=== PATIENT | female | born 1950 | race American Indian/Alaskan Native ===

== ENCOUNTER 2018-11-06 16:47 | Inpatient (IN) | payer MEDICARE, MEDICAID, OTHER | END 2018-11-10 14:45 | LOC: ER 16:47 → ED HOLD 19:51 → PCU 3S 20:44 | DX: N17.9 Acute kidney failure, unspecified (principal); I13.0 Hypertensive heart and chronic kidney disease with heart failure and stage 1 through stage 4 chronic kidney disease, or unspecified chronic kidney disease; E11.22 Type 2 diabetes mellitus with diabetic chronic kidney disease; N18.4 Chronic kidney disease, stage 4 (severe); E11.21 Type 2 diabetes mellitus with diabetic nephropathy; E66.9 Obesity, unspecified; Z68.38 Body mass index [BMI] 38.0-38.9, adult ==

== ENCOUNTER 2019-01-13 19:12 | Inpatient (IN) | payer MEDICARE, MEDICAID, OTHER ==
[~2019-01-13] VITALS: Ht 152.4 cm; Wt 89.9 kg
[~2019-01-13 19:12] MED LIST: AMLO2.5T2 PO; ASPI-1264 PO; ATOR20TA PO; CEFT1VIA14 IV; CLON-529 PO; DOCU100C41 PO; FENT1PAT10 TP; FERR325T28 PO; FOLI0.4T2 PO; FURO-150 PO; INSU100C10 SQ; LANTUS SQ; LISI40TA4 PO; METF500T PO; METO1TAB25 PO; OMEP40CA37 PO; POTA10TA10 PO; SYN0.088T PO
[2019-01-13] MEDS ORDERED: normal saline 1000ML IV soln IVB ONE (19:20)
[2019-01-13] MEDS ORDERED: CefTRIAXone 2gm/D5W 50ml 50 ML IV ONE (19:20)
--- NOTE | 2019-01-13 19:40 | NUR ---
Pt back from CT
[2019-01-13 19:49] LABS: BASOPHILS # (AUTO) 0.1 X10'3 (0-0.2); BASOPHILS % (AUTO) 0.3 % (0-1); EOSINOPHILS % (AUTO) 0 % (0-6); LYMPHOCYTES # (AUTO) 1.4 X10'3 (1.1-4.8); LYMPHOCYTES % (AUTO) 6.8 % (21-51); MEAN CORPUSCULAR HEMOGLOBIN 31.1 PG (27.0-31.0); MEAN CORPUSCULAR HGB CONC 30.3 g/dL (33.0-36.5); MEAN CORPUSCULAR VOLUME 102.6 FL (78-98); MEAN PLATELET VOLUME 8.5 FL (7.4-10.4); MONOCYTES # (AUTO) 0.8 X10'3 (0-0.9); MONOCYTES % (AUTO) 3.8 % (2-12); NEUTROPHILS % (AUTO) 89.1 % (42-75); PLATELET COUNT 559 X10'3 (140-440); RED BLOOD COUNT 1.07 X10'6 (4.20-5.60); RED CELL DISTRIBUTION WIDTH 15.1 % (11.5-14.5); WHITE BLOOD COUNT 21.3 X10'3 (4.5-11.0)
[2019-01-13 20:03] LABS: HEMOGLOBIN 3.3 g/dl (12.0-16.0)
[2019-01-13 20:04] LABS: ALANINE AMINOTRANSFERASE 14 U/L (12-78); ALBUMIN 1.3 G/DL (3.4-5.0); ALBUMIN/GLOBULIN RATIO 0.4 (1.1-1.5); ALKALINE PHOSPHATASE 69 IU/L (46-116); ANION GAP 15 (8-16); ASPARTATE AMINO TRANSFERASE 19 U/L (10-37); BILIRUBIN,TOTAL 0.3 MG/DL (0.1-1.0); BLOOD UREA NITROGEN 80 MG/DL (7-18); BUN/CREATININE RATIO 24.8 (6.6-38.0); CALCIUM 7.3 MG/DL (8.5-10.1); CHLORIDE 108 MMOL/L (99-107); CREATININE 3.23 MG/DL (0.40-0.90); GLUCOSE 200 MG/DL (70-104); MAGNESIUM 1.6 MG/DL (1.5-2.4); SODIUM 136 MMOL/L (135-145); TOTAL PROTEIN 4.7 G/DL (6.4-8.2); eGFR 14 ML/MIN
[2019-01-13 20:06] LABS: TOTAL CARBON DIOXIDE 13.4 MMOL/L (24-32)
[2019-01-13 20:07] LABS: INR 1.1 INR; PARTIAL THROMBOPLASTIN TIME 27 SECONDS (22-32)
--- NOTE | 2019-01-13 20:27 | NUR ---
pt had small brown loose bowel, +hemocult, pt able to roll side to side without assist, family at bedside, pt has wound to rt buttock, picture taken, no skin breakdown to back/coccyx, Dr Ramachandran has talked with family,
[2019-01-13 20:30] LABS: CLARITY,URINE SLIGHTLY CLOUDY (Clear); GLUCOSE, URINE 100 mg/dl (Neg); KETONES,URINE NEGATIVE (Neg); LEUKOCYTE ESTERASE ,URINE MODERATE (Neg); NITRITES, URINE POSITIVE (Neg); OCCULT BLOOD,URINE TRACE-INTACT (Neg); PROTEIN,URINE 100 mg/dl (Neg)
[2019-01-13 20:33] LABS: UA COLLECTION TYPE STRAIGHT CATH
[2019-01-13 20:34] LABS: COLOR,URINE Dark Yellow (Yellow)
[2019-01-13 20:47] LABS: WBC,URINE 30-50 /HPF (0-4)
[2019-01-13 20:49] LABS: AMORPHOUS URATES 2+; BACTERIA,URINE FEW /HPF (Neg); MUCUS STRANDS NONE SEEN /LPF (Neg); RBC,URINE NONE SEEN /HPF (0-2); SQUAMOUS EPITHELIAL CELL,UR FEW /LPF (FEW); WBC CLUMPS,URINE MODERATE /HPF (NEGATIVE)
[2019-01-13 20:50] LABS: YEAST MODERATE /HPF (NEGATIVE)
--- NOTE | 2019-01-13 20:55 | NUR ---
PA with ICU at bedside to evaluate pt
[2019-01-13] MEDS: normal saline 1000ml 1,000 ML IV SCH (21:01)
[2019-01-13] MEDS ORDERED: potassium Cl 40MEQ/NS 500ml 500 ML IV PRN ×2 (21:05)
[2019-01-13] MEDS ORDERED: ondansetron/PF 4mg/2ml inj IV PRN (21:05)
[2019-01-13] MEDS ORDERED: potassium Cl 20 mEq SR tablet PO PRN ×2 (21:05)
[2019-01-13] MEDS ORDERED: ipratropium/albuterol 3ml nebule NEB PRN (21:05)
[2019-01-13] MEDS: K, MAG and/or Phos replacement - Verify level? MC SCH (21:05)
[2019-01-13] MEDS ORDERED: acetaminophen 325mg tablet PO PRN ×2 (21:05)
[2019-01-13 21:26] LABS: OCCULT BLOOD STOOL POSITIVE (Neg)
--- NOTE | 2019-01-13 21:27 | NUR ---
pt placed on bedpan for BM - she is given call light and instructed to press the button when she is finished.
[2019-01-13] MEDS ORDERED: glucagon, human recombinant 1mg kit SUBCUT PRN (21:30)
[2019-01-13] MEDS ORDERED: dextrose 50%-water 50ml dispensing syringe IV PRN (21:30)
[2019-01-13] MEDS ORDERED: dextrose ORAL solution 15 GM/59 ML bottle PO PRN (21:30)
[2019-01-13] MEDS ORDERED: MESSAGE TO PHARMACY PO ONE (21:30)
[2019-01-13 21:43] VITALS: BP 96/52
[2019-01-13] MEDS ORDERED: pantoprazole 40 MG vial IV ONE (21:50)
--- NOTE | 2019-01-13 21:53 | NUR ---
BLOOD/BRACELETS SCANNED - WENT TO DO CHECKLIST FOR NS/BLOOD TUBING, CMV/IRRIDATED, ETC, CHECK SCREEN RETURNED ME TO MAIN TRANSFUSION SCREEN. UNABLE TO CHECK BOXES -
[2019-01-13 22:00] VITALS: BP 99/35
--- NOTE | 2019-01-13 22:01 | NUR ---
pt is receiving 1st unit PRBC, shirley well, family at bedside
--- NOTE | 2019-01-13 22:05 | NUR ---
attempted report, room is not ready and nurse will call back for report
[2019-01-13] MEDS ORDERED: pantoprazole 40 MG vial IV SCH (22:30)
[2019-01-13 22:33] LABS: PLATELET ESTIMATE INCREASED; TOTAL CELLS COUNTED 100
[2019-01-13 22:34] LABS: POLYCHROMASIA 1+
[2019-01-13 22:35] LABS: HYPOCHROMASIA 1+
--- NOTE | 2019-01-13 22:35 | NUR ---
ATTEMPTED REPORT, UNIT NURSE NOT AVAILABLE DUE TO CRISIS IN ICU
[2019-01-13 22:36] LABS: HYPERSEGMENTED NEUTROPHILS FEW
[2019-01-13] MEDS ORDERED: calcium chloride 100 MG/1 ML inj IV ONE (22:45)
[2019-01-13 22:58] VITALS: BP 103/46
[2019-01-13 22:59] LABS: HEMOGLOBIN A1C 8.4 % (4.5-6.2)
[2019-01-13 23:06] VITALS: BP 110/52
--- NOTE | 2019-01-13 23:14 | NUR ---
2nd unit of blood transfusing, family at BS. Pt feeling better, a little more 'spunk' after the first unit
--- NOTE | 2019-01-13 23:15 | NUR ---
Patient in room . I have received report from Lamar and had the opportunity to ask questions and assume patient care.
--- NOTE | 2019-01-13 23:18 | NUR ---
report to Jesús MUNOZ
[2019-01-13 23:21] VITALS: BP 134/52
--- NOTE | 2019-01-13 23:23 | NUR ---
pt is receiving 2nd unit PRBC, shirley well, no s/s of reaction to receiving blood products
[2019-01-13 23:45] VITALS: BP 115/45
[2019-01-14] VITALS (24 sets, daily range): BP systolic 99–156; BP diastolic 35–69
[2019-01-14 03:32] LABS: BASOPHILS # (AUTO) 0.1 X10'3 (0-0.2); BASOPHILS % (AUTO) 0.3 % (0-1); EOSINOPHILS % (AUTO) 0.2 % (0-6); HEMATOCRIT 30.8 % (35.0-45.0); HEMOGLOBIN 9.8 g/dl (12.0-16.0); LYMPHOCYTES # (AUTO) 1.8 X10'3 (1.1-4.8); LYMPHOCYTES % (AUTO) 9.4 % (21-51); MEAN CORPUSCULAR HEMOGLOBIN 30.2 PG (27.0-31.0); MEAN CORPUSCULAR HGB CONC 31.9 g/dL (33.0-36.5); MEAN CORPUSCULAR VOLUME 94.9 FL (78-98); MEAN PLATELET VOLUME 8.6 FL (7.4-10.4); MONOCYTES % (AUTO) 5.2 % (2-12); NEUTROPHILS # (AUTO) 16.7 X10'3 (1.8-7.7); NEUTROPHILS % (AUTO) 84.9 % (42-75); PLATELET COUNT 395 X10'3 (140-440); RED BLOOD COUNT 3.24 X10'6 (4.20-5.60); RED CELL DISTRIBUTION WIDTH 18.3 % (11.5-14.5); WHITE BLOOD COUNT 19.7 X10'3 (4.5-11.0)
[2019-01-14 03:37] LABS: ALANINE AMINOTRANSFERASE 17 U/L (12-78); ALBUMIN 1.3 G/DL (3.4-5.0); ALBUMIN/GLOBULIN RATIO 0.4 (1.1-1.5); ALKALINE PHOSPHATASE 63 IU/L (46-116); ANION GAP 16 (8-16); ASPARTATE AMINO TRANSFERASE 18 U/L (10-37); BILIRUBIN,TOTAL 0.3 MG/DL (0.1-1.0); BLOOD UREA NITROGEN 76 MG/DL (7-18); BUN/CREATININE RATIO 24.8 (6.6-38.0); CHLORIDE 110 MMOL/L (99-107); CREATININE 3.06 MG/DL (0.40-0.90); GLUCOSE 141 MG/DL (70-104); MAGNESIUM 1.6 MG/DL (1.5-2.4); PHOSPHORUS 6.8 MG/DL (2.3-4.5); POTASSIUM 4.9 MMOL/L (3.5-5.1); SODIUM 138 MMOL/L (135-145); TOTAL PROTEIN 4.6 G/DL (6.4-8.2); eGFR 15 ML/MIN
[2019-01-14 03:42] LABS: TOTAL CARBON DIOXIDE 12.2 MMOL/L (24-32)
[2019-01-14] MEDS ORDERED: aspirin 325mg tablet PO SCH (08:00)
[2019-01-14] MEDS ORDERED: levoTHYROXINE 88mcg tablet PO SCH (08:00)
[2019-01-14] MEDS: K, MAG and/or Phos replacement - Verify level? MC SCH (08:00)
[2019-01-14] MEDS ORDERED: folic acid 0.4mg tablet PO SCH (08:00)
[2019-01-14] MEDS: pantoprazole 40 MG vial IV SCH (08:54)
[2019-01-14] MEDS: ferrous sulfate 325mg tablet PO SCH (08:55)
[2019-01-14] MEDS: docusate sod 100mg capsule PO SCH (08:55)
--- NOTE | 2019-01-14 10:59 | NUR ---
Attempting to contact SHAUNA for Dr Snowden. Trying to get holistic health practitioner number from housekeeper head but she is not answering. Paged SHAUNA on intranet and notified charge of issues contacting SHAUNA
[2019-01-14] MEDS: normal saline 1000ml 1,000 ML IV SCH ×2 (11:15→16:04)
--- NOTE | 2019-01-14 11:28 | NUR ---
Called type disk quality control supervisor GI Doc and spoke with answering service. They will call back; Dr lopez number given
--- NOTE | 2019-01-14 12:54 | NUR ---
DM Consult: A1C 8.4. Pt admit w/ possible NSTEMI, dehydration and shock w/ subsequent renal failure per MD note. CT abdomen revealed possible superficial hematoma; LBM 01/13 stool occult positive though brown per MD note. PO meals pending at this time. RD unable to wake pt during visit; written DM ed handout w/ RD contact information left at bedside. Will continue to monitor. Rec: 1. continue carb controlled diet 2. monitor for ONS needs pending PO this admit 3. wt per rx Addendum: 01/14/19 at [address] Amended: Links added.
[2019-01-14 13:44] LABS: ABSOLUTE RETICS # 123900 /CUMM (23000-93000); HEMATOCRIT 28.9 % (35.0-45.0); HEMOGLOBIN 9.2 g/dl (12.0-16.0); MEAN CORPUSCULAR HEMOGLOBIN 30.2 PG (27.0-31.0); MEAN CORPUSCULAR HGB CONC 31.9 g/dL (33.0-36.5); MEAN CORPUSCULAR VOLUME 94.5 FL (78-98); MEAN PLATELET VOLUME 8.9 FL (7.4-10.4); PLATELET COUNT 390 X10'3 (140-440); RED BLOOD COUNT 3.05 X10'6 (4.20-5.60); RED CELL DISTRIBUTION WIDTH 19.4 % (11.5-14.5); RETICULOCYTE % (AUTO) 4.1 % (0.5-1.5); WHITE BLOOD COUNT 20.2 X10'3 (4.5-11.0)
[2019-01-14 13:54] LABS: % IRON SATURATION 62 % (11-46); IRON 94 UG/DL (49-151); TOTAL IRON BINDING CAPACITY 151 UG/DL (259-388)
[2019-01-14] MEDS ORDERED: ALBU8.5H8 IH ×2 (14:06)
[2019-01-14] MEDS ORDERED: PEG 3350/Na sulf,bicarb,Cl/KCl oral sol 4 liter bottle PO ONE (14:15)
[2019-01-14] MEDS ORDERED: ESOM40CA PO (14:35)
[2019-01-14] MEDS ORDERED: FOLI1TAB16 PO (14:35)
[2019-01-14] MEDS ORDERED: ATOR80TA PO (14:35)
[2019-01-14] MEDS ORDERED: HYDR-4353 PO (14:35)
[2019-01-14] MEDS ORDERED: RIVA20TA PO (14:35)
[2019-01-14] MEDS ORDERED: TRAM50TA2 PO (14:35)
[2019-01-14] MEDS ORDERED: CLON0.1T PO (14:35)
[2019-01-14] MEDS ORDERED: TIOT18CA3 IH (14:35)
[2019-01-14] MEDS ORDERED: FENT1PAT7 TD (14:35)
[2019-01-14] MEDS ORDERED: HUM7525 SQ (14:35)
[2019-01-14] MEDS ORDERED: LEVO75TA PO (14:35)
[2019-01-14] MEDS ORDERED: ASPI-1071 PO (14:35)
[2019-01-14] MEDS ORDERED: ETAN50CA SQ (14:35)
[2019-01-14] MEDS ORDERED: traMADol 50MG tablet PO PRN (14:40)
[2019-01-14] MEDS ORDERED: non-formulary drug (Albuterol Sulfate (Proair Hfa) 1 PUFFS) IH PRN (14:40)
[2019-01-14] MEDS: insulin Lispro (HumaLOG) vial - multi-dose SQ SCH (19:40)
[2019-01-14] MEDS: bisacodyl 5mg tablet.DR PO SCH (19:43)
[2019-01-14] MEDS: atorvastatin 20mg tablet PO SCH (19:43)
[2019-01-14] MEDS: lactobacillus rhamnosus 10,000 MMU CELLS/CAPSULE PO SCH (19:43)
[2019-01-14] MEDS: HYDROcodone/acetaminophen 10/325mg tab PO PRN (19:58)
[2019-01-14] MEDS ORDERED: CefTRIAXone 2gm/D5W 50ml 50 ML IV SCH (20:00)
[2019-01-14] MEDS: insulin glargine (Lantus) pen - multi-dose SQ SCH (21:31)
[2019-01-14 21:55] LABS: HEMATOCRIT 27.9 % (35.0-45.0); MEAN CORPUSCULAR HEMOGLOBIN 30.6 PG (27.0-31.0); MEAN CORPUSCULAR HGB CONC 32.1 g/dL (33.0-36.5); MEAN CORPUSCULAR VOLUME 95.1 FL (78-98); MEAN PLATELET VOLUME 8.9 FL (7.4-10.4); PLATELET COUNT 365 X10'3 (140-440); RED BLOOD COUNT 2.93 X10'6 (4.20-5.60); RED CELL DISTRIBUTION WIDTH 19.8 % (11.5-14.5); WHITE BLOOD COUNT 19.1 X10'3 (4.5-11.0)
[2019-01-15] VITALS (24 sets, daily range): BP systolic 90–156; BP diastolic 33–68
[2019-01-15 05:34] LABS: BASOPHILS # (AUTO) 0.1 X10'3 (0-0.2); BASOPHILS % (AUTO) 0.4 % (0-1); EOSINOPHILS # (AUTO) 0.2 X10'3 (0-0.9); EOSINOPHILS % (AUTO) 0.9 % (0-6); HEMATOCRIT 29.5 % (35.0-45.0); HEMOGLOBIN 9.4 g/dl (12.0-16.0); LYMPHOCYTES # (AUTO) 3.1 X10'3 (1.1-4.8); LYMPHOCYTES % (AUTO) 16.2 % (21-51); MEAN CORPUSCULAR HEMOGLOBIN 30.3 PG (27.0-31.0); MEAN CORPUSCULAR VOLUME 94.4 FL (78-98); MEAN PLATELET VOLUME 8.6 FL (7.4-10.4); MONOCYTES # (AUTO) 1.3 X10'3 (0-0.9); MONOCYTES % (AUTO) 6.9 % (2-12); NEUTROPHILS # (AUTO) 14.4 X10'3 (1.8-7.7); NEUTROPHILS % (AUTO) 75.6 % (42-75); PLATELET COUNT 373 X10'3 (140-440); RED BLOOD COUNT 3.12 X10'6 (4.20-5.60); RED CELL DISTRIBUTION WIDTH 19.6 % (11.5-14.5); WHITE BLOOD COUNT 19.1 X10'3 (4.5-11.0)
[2019-01-15 05:52] LABS: ALANINE AMINOTRANSFERASE 18 U/L (12-78); ALBUMIN 1.3 G/DL (3.4-5.0); ALBUMIN/GLOBULIN RATIO 0.4 (1.1-1.5); ALKALINE PHOSPHATASE 69 IU/L (46-116); ANION GAP 16 (8-16); ASPARTATE AMINO TRANSFERASE 21 U/L (10-37); BILIRUBIN,TOTAL 0.2 MG/DL (0.1-1.0); BLOOD UREA NITROGEN 76 MG/DL (7-18); BUN/CREATININE RATIO 25.3 (6.6-38.0); CALCIUM 7.8 MG/DL (8.5-10.1); CHLORIDE 113 MMOL/L (99-107); GLUCOSE 58 MG/DL (70-104); MAGNESIUM 1.6 MG/DL (1.5-2.4); PHOSPHORUS 5.1 MG/DL (2.3-4.5); POTASSIUM 4.5 MMOL/L (3.5-5.1); SODIUM 143 MMOL/L (135-145); TOTAL PROTEIN 4.9 G/DL (6.4-8.2); eGFR 15 ML/MIN
[2019-01-15 05:56] LABS: TOTAL CARBON DIOXIDE 13.8 MMOL/L (24-32)
[2019-01-15] MEDS: dextrose 50%-water 50ml dispensing syringe IV PRN ×2 (07:00→13:33)
[2019-01-15 07:41] LABS: ANISOCYTOSIS 2+; ELLIPTOCYTES FEW; PLATELET ESTIMATE NORMAL; SCHISTOCYTES FEW
[2019-01-15 07:42] LABS: POLYCHROMASIA FEW
[2019-01-15] MEDS: K, MAG and/or Phos replacement - Verify level? MC SCH (08:00)
[2019-01-15] MEDS ORDERED: levoTHYROXINE 75mcg tablet PO SCH (08:00)
[2019-01-15] MEDS: docusate sod 100mg capsule PO SCH (08:00)
[2019-01-15] MEDS: bisacodyl 5mg tablet.DR PO SCH (08:00)
[2019-01-15] MEDS ORDERED: fentaNYL 25MCG/hour patch.TD72 TD SCH (09:00)
[2019-01-15] MEDS: folic acid 1mg tablet PO SCH (10:12)
[2019-01-15] MEDS: pantoprazole 40 MG vial IV SCH (10:12)
[2019-01-15] MEDS: lactobacillus rhamnosus 10,000 MMU CELLS/CAPSULE PO SCH ×2 (10:12→20:03)
[2019-01-15] MEDS: ferrous sulfate 325mg tablet PO SCH (10:12)
[2019-01-15] MEDS: levoTHYROXINE 112mcg tablet PO SCH (10:12)
[2019-01-15] MEDS ORDERED: magnesium citrate 296ml oral solution PO ONE (10:55)
[2019-01-15] MEDS ORDERED: LIDOcaine Viscous 15ml cup ONE (11:31)
[2019-01-15] MEDS ORDERED: MIDAZolam 5mg/5ml vial ONE (11:31)
[2019-01-15] MEDS ORDERED: fentaNYL/PF 50MCG/1 ML 2ML syringe ONE (11:31)
[2019-01-15] MEDS: sodium bicarbonate (8.4%) inj. 100 MEQ in dextrose 5%-water 1,000 ML IV SCH (11:45)
--- NOTE | 2019-01-15 12:21 | NUR ---
GI lab staff at bedside, preparing for EGD and colonoscopy.
[2019-01-15] MEDS: fentaNYL 25MCG/hour patch.TD72 TD SCH (14:43)
--- NOTE | 2019-01-15 16:45 | NUR ---
Discussed the family's concerns with Merle Lee on rounding as to whether patient should continue xarelto, she states that there needs to be a discussion with them and patient when patient is more awake and able (s/p moderate sedation) and family is present.
--- NOTE | 2019-01-15 18:26 | NUR ---
I have received report and assumed care of pt, pt resting in bed denies distress, rise and fall of chest cavity equile and symmetrical, family at bedside denies needs at this time
--- NOTE | 2019-01-15 19:21 | NUR ---
spoke to Jesus MORSE, regarding pts multiple episodes of hypoglycemia, new orders received to hold insulin for now, continue to check glucose levels per MD orders, once pt has met protocol guidelines for hyperglycemia, reinitiate the insulin at that time.
--- NOTE | 2019-01-15 19:27 | NUR ---
report given to receiving rn
--- NOTE | 2019-01-15 19:37 | NUR ---
Patient in room CICU 2010. I have received report from marj joshi and had the opportunity to ask questions and assume patient care.
[2019-01-15] MEDS: atorvastatin 20mg tablet PO SCH (20:03)
--- NOTE | 2019-01-15 20:30 | NUR ---
pt given dinner tray. pt fell asleep while eating. when pt woke up she asked if she was going to get dinner. pt showed that her dinner tray was in front of her. pt reoriented. will continue to monitor.
[2019-01-15] MEDS: insulin glargine (Lantus) pen - multi-dose SQ SCH (21:00)
[2019-01-15] MEDS: ipratropium 0.5 MG/2.5ML nebule IH SCH (22:18)
[2019-01-16] VITALS (23 sets, daily range): BP systolic 109–165; BP diastolic 35–87
[2019-01-16] MEDS: sodium bicarbonate (8.4%) inj. 100 MEQ in dextrose 5%-water 1,000 ML IV SCH (01:00)
[2019-01-16] MEDS: normal saline 1000ml 1,000 ML IV SCH (02:29)
[2019-01-16] MEDS: ipratropium 0.5 MG/2.5ML nebule IH SCH ×4 (03:00→20:10)
--- NOTE | 2019-01-16 06:19 | NUR ---
Patient in room CICU 2010. I have received report from Naomi and had the opportunity to ask questions and assume patient care.
[2019-01-16 06:26] LABS: BASOPHILS # (AUTO) 0.1 X10'3 (0-0.2); BASOPHILS % (AUTO) 0.4 % (0-1); EOSINOPHILS # (AUTO) 0.1 X10'3 (0-0.9); EOSINOPHILS % (AUTO) 0.8 % (0-6); HEMATOCRIT 28.9 % (35.0-45.0); HEMOGLOBIN 9.4 g/dl (12.0-16.0); LYMPHOCYTES # (AUTO) 1.9 X10'3 (1.1-4.8); LYMPHOCYTES % (AUTO) 11.2 % (21-51); MEAN CORPUSCULAR HEMOGLOBIN 30.8 PG (27.0-31.0); MEAN CORPUSCULAR HGB CONC 32.7 g/dL (33.0-36.5); MEAN CORPUSCULAR VOLUME 94.2 FL (78-98); MEAN PLATELET VOLUME 8.2 FL (7.4-10.4); MONOCYTES % (AUTO) 6.2 % (2-12); NEUTROPHILS # (AUTO) 13.7 X10'3 (1.8-7.7); NEUTROPHILS % (AUTO) 81.4 % (42-75); PLATELET COUNT 364 X10'3 (140-440); RED BLOOD COUNT 3.07 X10'6 (4.20-5.60); RED CELL DISTRIBUTION WIDTH 18.9 % (11.5-14.5); WHITE BLOOD COUNT 16.8 X10'3 (4.5-11.0)
[2019-01-16 06:51] LABS: ALANINE AMINOTRANSFERASE 16 U/L (12-78); ALBUMIN 1.2 G/DL (3.4-5.0); ALBUMIN/GLOBULIN RATIO 0.3 (1.1-1.5); ALKALINE PHOSPHATASE 74 IU/L (46-116); ANION GAP 14 (8-16); ASPARTATE AMINO TRANSFERASE 19 U/L (10-37); BILIRUBIN,TOTAL 0.2 MG/DL (0.1-1.0); BLOOD UREA NITROGEN 61 MG/DL (7-18); BUN/CREATININE RATIO 24.7 (6.6-38.0); CALCIUM 7.6 MG/DL (8.5-10.1); CHLORIDE 110 MMOL/L (99-107); CREATININE 2.47 MG/DL (0.40-0.90); GLUCOSE 173 MG/DL (70-104); MAGNESIUM 1.9 MG/DL (1.5-2.4); PHOSPHORUS 3.5 MG/DL (2.3-4.5); SODIUM 139 MMOL/L (135-145); TOTAL CARBON DIOXIDE 15.1 MMOL/L (24-32); TOTAL PROTEIN 4.8 G/DL (6.4-8.2); eGFR 19 ML/MIN
[2019-01-16 07:29] LABS: ANISOCYTOSIS 2+; PLATELET ESTIMATE NORMAL
[2019-01-16] MEDS: HYDROcodone/acetaminophen 10/325mg tab PO PRN (07:55)
[2019-01-16] MEDS: ferrous sulfate 325mg tablet PO SCH (07:55)
[2019-01-16] MEDS: levoTHYROXINE 112mcg tablet PO SCH (07:56)
[2019-01-16] MEDS: lactobacillus rhamnosus 10,000 MMU CELLS/CAPSULE PO SCH ×2 (07:56→20:50)
[2019-01-16] MEDS: docusate sod 100mg capsule PO SCH (07:56)
[2019-01-16] MEDS: pantoprazole 40 MG vial IV SCH (07:56)
[2019-01-16] MEDS: folic acid 1mg tablet PO SCH (07:56)
[2019-01-16] MEDS: K, MAG and/or Phos replacement - Verify level? MC SCH (08:44)
[2019-01-16] MEDS: insulin Lispro (HumaLOG) vial - multi-dose SQ SCH ×2 (08:48→14:18)
[2019-01-16 10:51] LABS: ABG BASE EXCESS -10.5 mmol/L (-2.0-3.0); ABG HCO3 13.3 mmol/L (22.0-26.0); ABG OXYGEN SATURATION 97.9 % (95-98); ABG PCO2 (T) 23.4 mmHg (32.0-45.0); ABG PH (T) 7.373 (7.350-7.450); ABG PO2 (T) 115.5 mmHg (83-108); ALLEN'S TEST Positive; FCOHb 1.8 % (0.5-1.5); FMetHb 0.1 % (0.3-1.12); TOTAL HEMOGLOBIN 8.8 G/dl (12.0-16.0)
--- NOTE | 2019-01-16 11:06 | NUR ---
1000- rounds with Dr Wagner- ABG, Advance diet. 1100- ABG completed, pt got a skin tear on left wrist with tape removal, pictures taken and placed in chart (pt states, "that happens to me sometimes), used bed miller, urine quite odiferous and patient states it omalley, reported all to Dr Wagner, he will order some urine studies, may use straight cath to obtain urine sample.
--- NOTE | 2019-01-16 13:44 | NUR ---
1230 - kidney ultrasound completed, straight cath for UA completed, at end of bladder draining, purulent drainage in tubing noted.
[2019-01-16 13:52] LABS: FERRITIN 94 NG/ML (8-252); LACTATE DEHYDROGENASE 374 U/L (81-234)
[2019-01-16] MEDS: epoetin 20,000 units/ml inj SQ SCH (14:13)
[2019-01-16 14:18] LABS: CLARITY,URINE CLOUDY (Clear); COLOR,URINE YELLOW (Yellow); GLUCOSE, URINE 250 mg/dl (Neg); KETONES,URINE NEGATIVE (Neg); LEUKOCYTE ESTERASE ,URINE LARGE (Neg); NITRITES, URINE NEGATIVE (Neg); OCCULT BLOOD,URINE LARGE (Neg); PH,URINE 5.5 (4.8-8.0); PROTEIN,URINE 100 mg/dl (Neg); UROBILINOGEN,URINE 0.2 E.U/dL (0.2-1.0)
[2019-01-16 14:28] LABS: TOTAL PROTEIN,URINE RANDOM 290.4 MG/DL
[2019-01-16 14:40] LABS: UA COLLECTION TYPE STRAIGHT CATH
[2019-01-16 14:43] LABS: MUCUS STRANDS NONE SEEN /LPF (Neg); SQUAMOUS EPITHELIAL CELL,UR FEW /LPF (FEW); TRANSITIONAL EPI CELLS,URINE MODERATE /HPF
[2019-01-16 14:44] LABS: RENAL CELLS, URINE MODERATE /HPF
[2019-01-16 14:46] LABS: WBC,URINE TNTC /HPF (0-4); YEAST MANY /HPF (NEGATIVE)
[2019-01-16] MEDS: sodium bicarbonate (8.4%) inj. 150 MEQ in dextrose 5%-water 1,000 ML IV SCH (14:47)
[2019-01-16 14:57] LABS: AMORPHOUS URATES 2+; BACTERIA,URINE FEW /HPF (Neg)
[2019-01-16 15:40] LABS: UA EOSINOPHILS FEW EOS /HPF
[2019-01-16] MEDS: dextrose ORAL solution 15 GM/59 ML bottle PO PRN (17:52)
--- NOTE | 2019-01-16 18:34 | NUR ---
1800- patient remains under my care at change of shift.
[2019-01-16] MEDS: atorvastatin 20mg tablet PO SCH (20:50)
[2019-01-16] MEDS: insulin glargine (Lantus) pen - multi-dose SQ SCH (21:00)
--- NOTE | 2019-01-16 21:02 | NUR ---
Margareth- Gloria Pandya notified of low blood sugars at dinner and HS, ordered to not administer HS lantus. Also start zosyn tonight.
[2019-01-16] MEDS: piperacillin/tazo 3.375gm/50ml 50 ML IV SCH (21:23)
[2019-01-17] VITALS (20 sets, daily range): BP systolic 113–158; BP diastolic 41–75
[2019-01-17] MEDS: sodium bicarbonate (8.4%) inj. 150 MEQ in dextrose 5%-water 1,000 ML IV SCH ×2 (00:13→09:05)
--- NOTE | 2019-01-17 00:25 | NUR ---
Patient in room CICU 2010. I have received report from Geneva and had the opportunity to ask questions and assume patient care. Pt appears to be sleeping.
--- NOTE | 2019-01-17 00:31 | NUR ---
Problems reprioritized. Patient report given, questions answered & plan of care reviewed with Mac.
--- NOTE | 2019-01-17 01:25 | NUR ---
RN Note -DC'd right AC PIV because it was leaking.
[2019-01-17] MEDS: ipratropium 0.5 MG/2.5ML nebule IH SCH ×4 (02:53→20:14)
[2019-01-17 04:13] LABS: BASOPHILS # (AUTO) 0.1 X10'3 (0-0.2); BASOPHILS % (AUTO) 0.8 % (0-1); EOSINOPHILS # (AUTO) 0.2 X10'3 (0-0.9); EOSINOPHILS % (AUTO) 1.1 % (0-6); HEMOGLOBIN 8.6 g/dl (12.0-16.0); LYMPHOCYTES # (AUTO) 2.3 X10'3 (1.1-4.8); LYMPHOCYTES % (AUTO) 15.2 % (21-51); MEAN CORPUSCULAR HEMOGLOBIN 30.7 PG (27.0-31.0); MEAN CORPUSCULAR VOLUME 92.9 FL (78-98); MEAN PLATELET VOLUME 8.4 FL (7.4-10.4); MONOCYTES # (AUTO) 1.2 X10'3 (0-0.9); MONOCYTES % (AUTO) 8.1 % (2-12); NEUTROPHILS # (AUTO) 11.3 X10'3 (1.8-7.7); NEUTROPHILS % (AUTO) 74.8 % (42-75); PLATELET COUNT 356 X10'3 (140-440); RED CELL DISTRIBUTION WIDTH 18.5 % (11.5-14.5); WHITE BLOOD COUNT 15.2 X10'3 (4.5-11.0)
[2019-01-17 04:26] LABS: ALANINE AMINOTRANSFERASE 19 U/L (12-78); ALBUMIN 1.1 G/DL (3.4-5.0); ALBUMIN/GLOBULIN RATIO 0.3 (1.1-1.5); ALKALINE PHOSPHATASE 74 IU/L (46-116); ANION GAP 9 (8-16); ASPARTATE AMINO TRANSFERASE 17 U/L (10-37); BILIRUBIN,TOTAL 0.3 MG/DL (0.1-1.0); BLOOD UREA NITROGEN 58 MG/DL (7-18); BUN/CREATININE RATIO 23.8 (6.6-38.0); CALCIUM 7.1 MG/DL (8.5-10.1); CHLORIDE 107 MMOL/L (99-107); CREATININE 2.44 MG/DL (0.40-0.90); GLUCOSE 70 MG/DL (70-104); MAGNESIUM 1.9 MG/DL (1.5-2.4); PHOSPHORUS 3.1 MG/DL (2.3-4.5); POTASSIUM 4.2 MMOL/L (3.5-5.1); SODIUM 138 MMOL/L (135-145); TOTAL CARBON DIOXIDE 21.6 MMOL/L (24-32); TOTAL PROTEIN 4.3 G/DL (6.4-8.2); eGFR 20 ML/MIN
[2019-01-17 04:48] LABS: ANISOCYTOSIS 2+; PLATELET ESTIMATE NORMAL; POLYCHROMASIA 1+
[2019-01-17 04:49] LABS: ACANTHOCYTES FEW
--- NOTE | 2019-01-17 06:36 | NUR ---
Patient in room CICU 2010. I have received report from ALEXANDER Holman and had the opportunity to ask questions and assume patient care.
[2019-01-17] MEDS: levoTHYROXINE 112mcg tablet PO SCH (06:54)
[2019-01-17] MEDS: pantoprazole 40mg Tablet.DR PO SCH ×2 (07:30→08:08)
[2019-01-17] MEDS: K, MAG and/or Phos replacement - Verify level? MC SCH (08:00)
[2019-01-17] MEDS ORDERED: piperacillin/tazo 3.375gm/50ml 50 ML IV SCH (08:00)
[2019-01-17] MEDS: docusate sod 100mg capsule PO SCH (08:08)
[2019-01-17] MEDS: piperacillin/tazo 3.375gm/50ml 50 ML IV SCH (08:08)
[2019-01-17] MEDS: folic acid 1mg tablet PO SCH (08:08)
[2019-01-17] MEDS: lactobacillus rhamnosus 10,000 MMU CELLS/CAPSULE PO SCH ×2 (08:08→20:24)
[2019-01-17] MEDS: HYDROcodone/acetaminophen 10/325mg tab PO PRN ×2 (09:30→17:58)
[2019-01-17] MEDS: fluconazole 100mg tablet PO SCH (10:17)
--- NOTE | 2019-01-17 18:09 | NUR ---
Problems reprioritized. Patient report given, questions answered & plan of care reviewed with ALEXANDER Barnhart.
[2019-01-17] MEDS: insulin Lispro (HumaLOG) vial - multi-dose SQ SCH (19:03)
[2019-01-17] MEDS: atorvastatin 20mg tablet PO SCH (20:24)
--- NOTE | 2019-01-17 21:31 | NUR ---
Spoke with Jesus Padnya regarding patient's lantus administration. Lantus has been held the last 2 nights 01/15 and 01/16 due to low blood sugar of 46 on the morning 01/15 after receiving 6 units of lantus on 01/14 per protocol. Lantus is to be resumed tonight per Jesus Pandya [employer]RA[employer] PRESS OPERATOR, patient's current blood sugar is 209 and blood sugar will be rechecked @ 0200 01/18. Patient educated to signs and symptoms of low blood sugar and instructed to let nursing staff know if she feels like she is experiencing symptoms of low blood sugar. Will continue to monitor closely
[2019-01-17] MEDS: insulin glargine (Lantus) pen - multi-dose SQ SCH (21:35)
[2019-01-18] MEDS: ipratropium 0.5 MG/2.5ML nebule IH SCH ×4 (03:00→21:23)
[2019-01-18 03:31] VITALS: BP 155/51
[2019-01-18 05:52] LABS: BASOPHILS # (AUTO) 0.1 X10'3 (0-0.2); BASOPHILS % (AUTO) 0.6 % (0-1); EOSINOPHILS # (AUTO) 0.2 X10'3 (0-0.9); EOSINOPHILS % (AUTO) 1.4 % (0-6); HEMATOCRIT 25.6 % (35.0-45.0); HEMOGLOBIN 8.4 g/dl (12.0-16.0); LYMPHOCYTES # (AUTO) 2.3 X10'3 (1.1-4.8); LYMPHOCYTES % (AUTO) 20.8 % (21-51); MEAN CORPUSCULAR HGB CONC 32.8 g/dL (33.0-36.5); MEAN CORPUSCULAR VOLUME 94.5 FL (78-98); MEAN PLATELET VOLUME 8.6 FL (7.4-10.4); MONOCYTES # (AUTO) 0.8 X10'3 (0-0.9); MONOCYTES % (AUTO) 7.5 % (2-12); NEUTROPHILS # (AUTO) 7.7 X10'3 (1.8-7.7); NEUTROPHILS % (AUTO) 69.7 % (42-75); PLATELET COUNT 342 X10'3 (140-440); RED BLOOD COUNT 2.71 X10'6 (4.20-5.60); RED CELL DISTRIBUTION WIDTH 18.8 % (11.5-14.5)
[2019-01-18 06:00] VITALS: BP 114/38
[2019-01-18 06:05] LABS: ALANINE AMINOTRANSFERASE 17 U/L (12-78); ALBUMIN/GLOBULIN RATIO 0.3 (1.1-1.5); ALKALINE PHOSPHATASE 78 IU/L (46-116); ANION GAP 10 (8-16); ASPARTATE AMINO TRANSFERASE 14 U/L (10-37); BILIRUBIN,TOTAL 0.2 MG/DL (0.1-1.0); BLOOD UREA NITROGEN 54 MG/DL (7-18); BUN/CREATININE RATIO 24.2 (6.6-38.0); CALCIUM 7.6 MG/DL (8.5-10.1); CHLORIDE 108 MMOL/L (99-107); CREATININE 2.23 MG/DL (0.40-0.90); GLUCOSE 73 MG/DL (70-104); MAGNESIUM 2.1 MG/DL (1.5-2.4); PHOSPHORUS 2.9 MG/DL (2.3-4.5); POTASSIUM 4.4 MMOL/L (3.5-5.1); SODIUM 139 MMOL/L (135-145); TOTAL CARBON DIOXIDE 21.4 MMOL/L (24-32); TOTAL PROTEIN 4.3 G/DL (6.4-8.2); eGFR 22 ML/MIN
--- NOTE | 2019-01-18 06:15 | NUR ---
[place] documentation: I have reviewed and agree with all interventions, assessments performed and documented by Dakota MUNOZ. [place] Medication Administration: For this medication-pass time frame, all medication were reviewed, dispensed, administered and documented per hospital policy by Dakota MUNOZ.
--- NOTE | 2019-01-18 06:21 | NUR ---
Problems reprioritized. Patient report given, questions answered & plan of care reviewed with ALEXANDER Henry.
--- NOTE | 2019-01-18 06:30 | NUR ---
Patient in room PCU 3012. I have received report from ALEXANDER Barnhart and had the opportunity to ask questions and assume patient care.
[2019-01-18 06:59] LABS: ANISOCYTOSIS 2+; PLATELET ESTIMATE NORMAL
[2019-01-18] MEDS: HYDROcodone/acetaminophen 10/325mg tab PO PRN ×3 (07:22→17:59)
[2019-01-18] MEDS: K, MAG and/or Phos replacement - Verify level? MC SCH (07:29)
[2019-01-18] MEDS: lactobacillus rhamnosus 10,000 MMU CELLS/CAPSULE PO SCH ×2 (07:36→20:23)
[2019-01-18] MEDS: docusate sod 100mg capsule PO SCH (07:36)
[2019-01-18] MEDS: fluconazole 100mg tablet PO SCH (07:37)
[2019-01-18] MEDS: levoTHYROXINE 112mcg tablet PO SCH (07:37)
[2019-01-18] MEDS: folic acid 1mg tablet PO SCH (07:37)
[2019-01-18] MEDS: pantoprazole 40mg Tablet.DR PO SCH (07:37)
[2019-01-18] MEDS: insulin Lispro (HumaLOG) vial - multi-dose SQ SCH ×3 (08:08→17:58)
[2019-01-18] MEDS: epoetin 20,000 units/ml inj SQ SCH (08:11)
[2019-01-18 11:00] VITALS: BP 162/58
[2019-01-18] MEDS: fentaNYL 25MCG/hour patch.TD72 TD SCH (15:10)
[2019-01-18 15:15] VITALS: BP 148/55
[2019-01-18 15:30] LABS: PLATELET COUNT 368 X10'3 (140-440)
[2019-01-18 15:40] LABS: INR 0.9 INR; PARTIAL THROMBOPLASTIN TIME 25 SECONDS (22-32)
[2019-01-18 15:41] LABS: D-DIMER 0.97 MG/L FEU (0-0.50)
[2019-01-18 18:00] VITALS: BP 147/63
[2019-01-18] MEDS: atorvastatin 20mg tablet PO SCH (20:23)
[2019-01-18] MEDS: insulin glargine (Lantus) pen - multi-dose SQ SCH (21:09)
[2019-01-18 22:00] VITALS: BP 140/55
--- NOTE | 2019-01-18 23:49 | NUR ---
Problems reprioritized. Patient report given, questions answered & plan of care reviewed with ALEXANDER Case.
--- NOTE | 2019-01-18 23:52 | NUR ---
Problems reprioritized. Patient report given, questions answered & plan of care reviewed with ALEXANDER Brenner. Addendum: 01/18/19 at 2352 by Carl Rouse RN wrong patient
[2019-01-19] MEDS: HYDROcodone/acetaminophen 10/325mg tab PO PRN ×3 (00:59→20:15)
[2019-01-19 02:00] VITALS: BP 128/50
[2019-01-19] MEDS: ipratropium 0.5 MG/2.5ML nebule IH SCH ×4 (03:06→20:59)
[2019-01-19 05:41] LABS: BASOPHILS # (AUTO) 0.1 X10'3 (0-0.2); BASOPHILS % (AUTO) 0.5 % (0-1); EOSINOPHILS # (AUTO) 0.1 X10'3 (0-0.9); EOSINOPHILS % (AUTO) 0.8 % (0-6); HEMATOCRIT 25.9 % (35.0-45.0); HEMOGLOBIN 8.6 g/dl (12.0-16.0); LYMPHOCYTES # (AUTO) 2.3 X10'3 (1.1-4.8); LYMPHOCYTES % (AUTO) 20.5 % (21-51); MEAN CORPUSCULAR HEMOGLOBIN 31.3 PG (27.0-31.0); MEAN CORPUSCULAR HGB CONC 33.3 g/dL (33.0-36.5); MEAN CORPUSCULAR VOLUME 94.1 FL (78-98); MEAN PLATELET VOLUME 8.3 FL (7.4-10.4); MONOCYTES # (AUTO) 0.9 X10'3 (0-0.9); NEUTROPHILS % (AUTO) 70.2 % (42-75); PLATELET COUNT 372 X10'3 (140-440); RED BLOOD COUNT 2.75 X10'6 (4.20-5.60); RED CELL DISTRIBUTION WIDTH 19.8 % (11.5-14.5); WHITE BLOOD COUNT 11.4 X10'3 (4.5-11.0)
[2019-01-19 05:55] LABS: ALANINE AMINOTRANSFERASE 23 U/L (12-78); ALBUMIN 1.2 G/DL (3.4-5.0); ALBUMIN/GLOBULIN RATIO 0.3 (1.1-1.5); ALKALINE PHOSPHATASE 83 IU/L (46-116); ANION GAP 8 (8-16); ASPARTATE AMINO TRANSFERASE 17 U/L (10-37); BILIRUBIN,TOTAL 0.2 MG/DL (0.1-1.0); BLOOD UREA NITROGEN 56 MG/DL (7-18); BUN/CREATININE RATIO 26.9 (6.6-38.0); CALCIUM 7.4 MG/DL (8.5-10.1); CHLORIDE 107 MMOL/L (99-107); CREATININE 2.08 MG/DL (0.40-0.90); GLUCOSE 77 MG/DL (70-104); MAGNESIUM 2.1 MG/DL (1.5-2.4); PHOSPHORUS 3.2 MG/DL (2.3-4.5); POTASSIUM 4.6 MMOL/L (3.5-5.1); SODIUM 138 MMOL/L (135-145); TOTAL CARBON DIOXIDE 22.6 MMOL/L (24-32); TOTAL PROTEIN 4.7 G/DL (6.4-8.2); eGFR 24 ML/MIN
[2019-01-19 06:00] VITALS: BP 131/51
--- NOTE | 2019-01-19 06:45 | NUR ---
Problems reprioritized. Patient report given, questions answered & plan of care reviewed with ALEXANDER Goldsmith and ALEXANDER Shannon
[2019-01-19] MEDS: K, MAG and/or Phos replacement - Verify level? MC SCH (08:00)
[2019-01-19 08:49] LABS: ANISOCYTOSIS 2+; PLATELET ESTIMATE NORMAL
[2019-01-19 08:50] LABS: MICROCYTOSIS 1+
[2019-01-19] MEDS: lactobacillus rhamnosus 10,000 MMU CELLS/CAPSULE PO SCH ×2 (09:31→20:03)
[2019-01-19] MEDS: pantoprazole 40mg Tablet.DR PO SCH (09:31)
[2019-01-19] MEDS: levoTHYROXINE 112mcg tablet PO SCH (09:31)
[2019-01-19] MEDS: docusate sod 100mg capsule PO SCH (09:31)
[2019-01-19] MEDS: folic acid 1mg tablet PO SCH (09:32)
[2019-01-19] MEDS: fluconazole 100mg tablet PO SCH (09:32)
[2019-01-19] MEDS: insulin Lispro (HumaLOG) vial - multi-dose SQ SCH ×2 (09:35→14:08)
[2019-01-19 09:59] LABS: LACTATE DEHYDROGENASE 463 U/L (81-234)
[2019-01-19 11:11] VITALS: BP 148/62
--- NOTE | 2019-01-19 11:11 | NUR ---
called Dr. Wagner, no answer
--- NOTE | 2019-01-19 14:11 | NUR ---
Reassessment: Pt PO 50% avg meals. LBM 01/18. Ensure high protein TIDWM added for additional protein needs w/ UTI/sepsis; MD and dietary notified. Will continue to monitor. Rec: 1. continue carb controlled diet 2. ensure high protein TIDWM 3. wt per rx Addendum: 01/19/19 at [address] Amended: Links added.
[2019-01-19 15:15] VITALS: BP 163/70
[2019-01-19 18:00] VITALS: BP 169/54
--- NOTE | 2019-01-19 18:30 | NUR ---
Patient in room PCU 3012. I have received report from Prachi MUNOZ and had the opportunity to ask questions and assume patient care.
[2019-01-19] MEDS: atorvastatin 20mg tablet PO SCH (20:03)
[2019-01-19] MEDS: micafungin inj 100 MG in normal saline 100ml IV soln 100 ML IV SCH (20:10)
[2019-01-19] MEDS: insulin glargine (Lantus) pen - multi-dose SQ SCH (21:37)
[2019-01-19 22:00] VITALS: BP 136/40
[2019-01-20] VITALS (13 sets, daily range): BP systolic 124–165; BP diastolic 41–63
[2019-01-20] MEDS: ipratropium 0.5 MG/2.5ML nebule IH SCH ×4 (02:45→21:01)
--- NOTE | 2019-01-20 06:00 | NUR ---
Patient in room PCU 3012. I have received report from ALEXANDER Wilburn and had the opportunity to ask questions and assume patient care.
[2019-01-20 06:10] LABS: BASOPHILS # (AUTO) 0.1 X10'3 (0-0.2); BASOPHILS % (AUTO) 1.1 % (0-1); EOSINOPHILS # (AUTO) 0.2 X10'3 (0-0.9); EOSINOPHILS % (AUTO) 1.7 % (0-6); HEMATOCRIT 22.9 % (35.0-45.0); HEMOGLOBIN 7.6 g/dl (12.0-16.0); LYMPHOCYTES # (AUTO) 2.4 X10'3 (1.1-4.8); LYMPHOCYTES % (AUTO) 25.5 % (21-51); MEAN CORPUSCULAR HEMOGLOBIN 31.4 PG (27.0-31.0); MEAN CORPUSCULAR VOLUME 95.2 FL (78-98); MONOCYTES # (AUTO) 0.8 X10'3 (0-0.9); MONOCYTES % (AUTO) 8.4 % (2-12); NEUTROPHILS % (AUTO) 63.3 % (42-75); PLATELET COUNT 347 X10'3 (140-440); RED CELL DISTRIBUTION WIDTH 20.3 % (11.5-14.5); WHITE BLOOD COUNT 9.4 X10'3 (4.5-11.0)
--- NOTE | 2019-01-20 06:14 | NUR ---
Problems reprioritized. Patient report given, questions answered & plan of care reviewed with Lucrecia joshi.
[2019-01-20 06:21] LABS: ALANINE AMINOTRANSFERASE 19 U/L (12-78); ALBUMIN/GLOBULIN RATIO 0.3 (1.1-1.5); ALKALINE PHOSPHATASE 74 IU/L (46-116); ANION GAP 5 (8-16); ASPARTATE AMINO TRANSFERASE 18 U/L (10-37); BILIRUBIN,TOTAL 0.1 MG/DL (0.1-1.0); BLOOD UREA NITROGEN 56 MG/DL (7-18); BUN/CREATININE RATIO 25.2 (6.6-38.0); CALCIUM 7.3 MG/DL (8.5-10.1); CHLORIDE 109 MMOL/L (99-107); CREATININE 2.22 MG/DL (0.40-0.90); GLUCOSE 123 MG/DL (70-104); LACTATE DEHYDROGENASE 273 U/L (81-234); MAGNESIUM 1.9 MG/DL (1.5-2.4); PHOSPHORUS 3.4 MG/DL (2.3-4.5); POTASSIUM 4.9 MMOL/L (3.5-5.1); SODIUM 136 MMOL/L (135-145); TOTAL CARBON DIOXIDE 22.2 MMOL/L (24-32); TOTAL PROTEIN 4.2 G/DL (6.4-8.2); eGFR 22 ML/MIN
[2019-01-20] MEDS: K, MAG and/or Phos replacement - Verify level? MC SCH (06:34)
[2019-01-20] MEDS: pantoprazole 40mg Tablet.DR PO SCH (07:07)
[2019-01-20] MEDS: levoTHYROXINE 112mcg tablet PO SCH (07:07)
[2019-01-20] MEDS: folic acid 1mg tablet PO SCH (08:23)
[2019-01-20] MEDS: HYDROcodone/acetaminophen 10/325mg tab PO PRN ×4 (08:23→22:59)
[2019-01-20] MEDS: docusate sod 100mg capsule PO SCH (08:23)
[2019-01-20] MEDS: lactobacillus rhamnosus 10,000 MMU CELLS/CAPSULE PO SCH ×2 (08:23→20:15)
[2019-01-20] MEDS: epoetin 20,000 units/ml inj SQ SCH (08:25)
[2019-01-20] MEDS: micafungin inj 100 MG in normal saline 100ml IV soln 100 ML IV SCH (08:26)
[2019-01-20] MEDS: insulin Lispro (HumaLOG) vial - multi-dose SQ SCH ×3 (08:32→19:02)
[2019-01-20] MEDS ORDERED: normal saline 1000ml 1,000 ML IV SCH (15:06)
[2019-01-20] MEDS ORDERED: LIDOcaine 1%/PF 5ML 10 MG/ML VIAL SQ ONE (15:10)
[2019-01-20] MEDS ORDERED: fentaNYL/PF 50MCG/1 ML 2ML syringe IV PRN (15:10)
[2019-01-20] MEDS ORDERED: heparin 1,000 units/ml 10ml inj ICATH ONE (15:10)
--- NOTE | 2019-01-20 15:16 | NUR ---
Pt taken to IR via hospital bed in stable condition for tunneled catheter placement. Pt's daughter and grandson also with patient. Pt is off floor at this time.
[2019-01-20] MEDS ORDERED: LIDOcaine 1%/PF 5ML 10 MG/ML VIAL ONE ×2 (15:18→15:51)
[2019-01-20] MEDS ORDERED: heparin 1,000unit/ml 10ml vial 10 ML ONE (15:22)
[2019-01-20] MEDS ORDERED: fentaNYL/PF 50MCG/1 ML 2ML syringe ONE ×2 (15:22→15:51)
--- NOTE | 2019-01-20 16:20 | NUR ---
Pt returned to unit in stable condition via hospital bed. VS stable, no signs of distress. Bed is low/locked/SRx2, call light in reach. Will continue to monitor.
--- NOTE | 2019-01-20 18:00 | NUR ---
Problems reprioritized. Patient report given, questions answered & plan of care reviewed with Miller MUNOZ and Bette MUNOZ.
[2019-01-20] MEDS: atorvastatin 20mg tablet PO SCH (20:15)
[2019-01-20] MEDS: insulin glargine (Lantus) pen - multi-dose SQ SCH (20:23)
[2019-01-21 03:00] VITALS: BP 128/44
[2019-01-21] MEDS: ipratropium 0.5 MG/2.5ML nebule IH SCH ×4 (03:12→21:07)
[2019-01-21 05:11] LABS: BASOPHILS # (AUTO) 0.1 X10'3 (0-0.2); BASOPHILS % (AUTO) 0.8 % (0-1); EOSINOPHILS # (AUTO) 0.2 X10'3 (0-0.9); EOSINOPHILS % (AUTO) 1.3 % (0-6); HEMATOCRIT 24.7 % (35.0-45.0); HEMOGLOBIN 7.9 g/dl (12.0-16.0); LYMPHOCYTES % (AUTO) 24.7 % (21-51); MEAN CORPUSCULAR HEMOGLOBIN 30.9 PG (27.0-31.0); MEAN CORPUSCULAR VOLUME 96.4 FL (78-98); MEAN PLATELET VOLUME 7.6 FL (7.4-10.4); MONOCYTES % (AUTO) 8.7 % (2-12); NEUTROPHILS # (AUTO) 7.8 X10'3 (1.8-7.7); NEUTROPHILS % (AUTO) 64.5 % (42-75); PLATELET COUNT 370 X10'3 (140-440); RED BLOOD COUNT 2.56 X10'6 (4.20-5.60); RED CELL DISTRIBUTION WIDTH 21.2 % (11.5-14.5)
--- NOTE | 2019-01-21 05:22 | NUR ---
Blood sugar was 56 mg/dl at 0430. 25 grams of carbs from given and rechecked Sugar at 0530. BS currently 105mg/ dl l
[2019-01-21 05:27] LABS: ALANINE AMINOTRANSFERASE 23 U/L (12-78); ALBUMIN 1.1 G/DL (3.4-5.0); ALBUMIN/GLOBULIN RATIO 0.3 (1.1-1.5); ALKALINE PHOSPHATASE 90 IU/L (46-116); ANION GAP 8 (8-16); ASPARTATE AMINO TRANSFERASE 24 U/L (10-37); BILIRUBIN,TOTAL 0.1 MG/DL (0.1-1.0); BLOOD UREA NITROGEN 56 MG/DL (7-18); BUN/CREATININE RATIO 27.7 (6.6-38.0); CALCIUM 7.8 MG/DL (8.5-10.1); CHLORIDE 108 MMOL/L (99-107); CREATININE 2.02 MG/DL (0.40-0.90); GLUCOSE 57 MG/DL (70-104); LACTATE DEHYDROGENASE 305 U/L (81-234); MAGNESIUM 1.9 MG/DL (1.5-2.4); PHOSPHORUS 2.4 MG/DL (2.3-4.5); POTASSIUM 5.3 MMOL/L (3.5-5.1); SODIUM 137 MMOL/L (135-145); TOTAL CARBON DIOXIDE 21.2 MMOL/L (24-32); TOTAL PROTEIN 4.6 G/DL (6.4-8.2); eGFR 24 ML/MIN
[2019-01-21 06:00] VITALS: BP 150/56
--- NOTE | 2019-01-21 06:00 | NUR ---
Patient in room PCU 3012. I have received report from ALEXANDER Bhatt and ALEXANDER Amos and had the opportunity to ask questions and assume patient care.
[2019-01-21] MEDS: levoTHYROXINE 112mcg tablet PO SCH (07:20)
[2019-01-21] MEDS ORDERED: calcium chloride inj. 2,000 MG in normal saline 250ml IV soln 250 ML IV ONE (07:20)
[2019-01-21] MEDS: pantoprazole 40mg Tablet.DR PO SCH (07:20)
[2019-01-21] MEDS ORDERED: citrate dextrose 1000ml IV sol 1,000 ML HE ONE (07:20)
--- NOTE | 2019-01-21 07:25 | NUR ---
Pt has fsbg 70, eating breakfast immediately after, will recheck fsbg after breakfast. Addendum: 01/21/19 at 0957 by Lexie Kendall RN 08 Pt FSBG 152, holding off on humalog to prevent possible hypoglycemia. Will reassess FSBG @ 1200.
[2019-01-21] MEDS: HYDROcodone/acetaminophen 10/325mg tab PO PRN ×2 (07:33→12:45)
[2019-01-21] MEDS: K, MAG and/or Phos replacement - Verify level? MC SCH (08:00)
[2019-01-21] MEDS: micafungin inj 100 MG in normal saline 100ml IV soln 100 ML IV SCH (08:13)
[2019-01-21] MEDS: docusate sod 100mg capsule PO SCH (08:13)
[2019-01-21] MEDS: lactobacillus rhamnosus 10,000 MMU CELLS/CAPSULE PO SCH ×2 (08:13→20:42)
[2019-01-21] MEDS: folic acid 1mg tablet PO SCH (08:13)
--- NOTE | 2019-01-21 09:20 | NUR ---
Notified Viki MORSE regarding patient's serum potassium of 5.3, no orders received at this time.
--- NOTE | 2019-01-21 12:56 | NUR ---
Notified Merle Lee of pt's elevated BPs with increasing pain in jaw and head, pt denies chest pain, states pain feels dental. No current BP meds ordered. Merle states that she will reenter pt's BP meds with now doses.
[2019-01-21] MEDS ORDERED: cloNIDine 0.1 mg tablet PO ONE (13:15)
[2019-01-21] MEDS ORDERED: nitroGLYCERIN 0.4mg SUBLingual tab SL PRN (13:15)
[2019-01-21] MEDS: insulin Lispro (HumaLOG) vial - multi-dose SQ SCH ×2 (14:28→19:38)
[2019-01-21] MEDS: fentaNYL 25MCG/hour patch.TD72 TD SCH (14:37)
--- NOTE | 2019-01-21 18:00 | NUR ---
Problems reprioritized. Patient report given, questions answered & plan of care reviewed with Miller MUNOZ and Bette MUNOZ.
[2019-01-21 19:00] VITALS: BP 162/59
[2019-01-21] MEDS: atorvastatin 20mg tablet PO SCH (20:41)
[2019-01-21] MEDS: sodium polystyrene sulfonate 15gm/60ml oral suspension PO SCH (20:47)
[2019-01-21] MEDS: insulin glargine (Lantus) pen - multi-dose SQ SCH (21:00)
--- NOTE | 2019-01-21 21:05 | NUR ---
Paged hospitalist to change Lantus dosage due to consistently low AM POC's Page Sent promotional table spacer PAGER ID: [phone] MESSAGE: Re: Lauren Quezadar PCU Rm 3012C, Pt is brittle diabetic, POC have been all over the place, has been bottoming out overnight from Lantus protocol, hoping we can change order to a straight dose of 3 units instead. Please call Bette MUNOZ [phone]
--- NOTE | 2019-01-21 21:14 | NUR ---
Dr. Flores said to hold 2100 Lantus dose this evening. Pt says she often does not take a long acting insulin in the evenings. Sandra recommends that if pt does need long-acting insulin, that it be changed to an AM dose, so if she does drop her BG it's during the day when she's awake and can identify symptoms, rather than the middle of the night when she may not be awake and able to respond. Also advised to check overnight POC between 2-3am to ensure she's not dropping BG for another reason. ALEXANDER Amos
[2019-01-21 22:30] VITALS: BP 173/68
[2019-01-22] VITALS (12 sets, daily range): BP systolic 141–193; BP diastolic 47–78
[2019-01-22] MEDS: cloNIDine 0.1 mg tablet PO SCH ×2 (00:01→21:12)
[2019-01-22] MEDS: ipratropium 0.5 MG/2.5ML nebule IH SCH ×4 (02:34→20:10)
[2019-01-22] MEDS: HYDROcodone/acetaminophen 10/325mg tab PO PRN ×3 (04:06→20:03)
[2019-01-22 05:31] LABS: BASOPHILS # (AUTO) 0.1 X10'3 (0-0.2); BASOPHILS % (AUTO) 1.2 % (0-1); EOSINOPHILS # (AUTO) 0.2 X10'3 (0-0.9); EOSINOPHILS % (AUTO) 2.8 % (0-6); HEMOGLOBIN 7.1 g/dl (12.0-16.0); LYMPHOCYTES # (AUTO) 1.7 X10'3 (1.1-4.8); LYMPHOCYTES % (AUTO) 20.9 % (21-51); MEAN CORPUSCULAR HEMOGLOBIN 32.1 PG (27.0-31.0); MEAN CORPUSCULAR HGB CONC 33.3 g/dL (33.0-36.5); MEAN CORPUSCULAR VOLUME 96.1 FL (78-98); MEAN PLATELET VOLUME 7.6 FL (7.4-10.4); MONOCYTES # (AUTO) 0.7 X10'3 (0-0.9); MONOCYTES % (AUTO) 8.7 % (2-12); NEUTROPHILS # (AUTO) 5.4 X10'3 (1.8-7.7); NEUTROPHILS % (AUTO) 66.4 % (42-75); PLATELET COUNT 327 X10'3 (140-440); RED BLOOD COUNT 2.22 X10'6 (4.20-5.60); RED CELL DISTRIBUTION WIDTH 21.7 % (11.5-14.5); WHITE BLOOD COUNT 8.2 X10'3 (4.5-11.0)
[2019-01-22 05:39] LABS: HEMATOCRIT 21.3 % (35.0-45.0)
--- NOTE | 2019-01-22 05:41 | NUR ---
Dr. Vega notified of Hgb 7.1 and Hct of 21.3 w/no new orders.
[2019-01-22 05:47] LABS: ALANINE AMINOTRANSFERASE 30 U/L (12-78); ALBUMIN 1.7 G/DL (3.4-5.0); ALBUMIN/GLOBULIN RATIO 0.7 (1.1-1.5); ALKALINE PHOSPHATASE 84 IU/L (46-116); ANION GAP 3 (8-16); ASPARTATE AMINO TRANSFERASE 58 U/L (10-37); BILIRUBIN,TOTAL 0.2 MG/DL (0.1-1.0); BLOOD UREA NITROGEN 52 MG/DL (7-18); BUN/CREATININE RATIO 28.9 (6.6-38.0); CALCIUM 8.2 MG/DL (8.5-10.1); CHLORIDE 109 MMOL/L (99-107); GLUCOSE 90 MG/DL (70-104); LACTATE DEHYDROGENASE 275 U/L (81-234); MAGNESIUM 1.6 MG/DL (1.5-2.4); PHOSPHORUS 2.6 MG/DL (2.3-4.5); POTASSIUM 4.9 MMOL/L (3.5-5.1); SODIUM 138 MMOL/L (135-145); TOTAL CARBON DIOXIDE 25.9 MMOL/L (24-32); TOTAL PROTEIN 4.3 G/DL (6.4-8.2); eGFR 28 ML/MIN
[2019-01-22] MEDS: levoTHYROXINE 112mcg tablet PO SCH (06:29)
[2019-01-22] MEDS: pantoprazole 40mg Tablet.DR PO SCH (07:13)
[2019-01-22] MEDS ORDERED: citrate dextrose 1000ml IV sol 1,000 ML HE ONE (07:35)
[2019-01-22] MEDS ORDERED: calcium chloride inj. 2,000 MG in normal saline 250ml IV soln 250 ML IV ONE (07:35)
[2019-01-22] MEDS: sodium polystyrene sulfonate 15gm/60ml oral suspension PO SCH (08:00)
[2019-01-22] MEDS: K, MAG and/or Phos replacement - Verify level? MC SCH (08:00)
[2019-01-22] MEDS: micafungin inj 100 MG in normal saline 100ml IV soln 100 ML IV SCH (08:38)
[2019-01-22] MEDS: docusate sod 100mg capsule PO SCH (08:38)
[2019-01-22] MEDS: lactobacillus rhamnosus 10,000 MMU CELLS/CAPSULE PO SCH ×2 (08:38→20:03)
[2019-01-22] MEDS: folic acid 1mg tablet PO SCH (08:38)
[2019-01-22] MEDS: insulin Lispro (HumaLOG) vial - multi-dose SQ SCH ×3 (09:20→18:13)
[2019-01-22 12:09] LABS: MEAN CORPUSCULAR HGB CONC 32.8 g/dL (33.0-36.5); MEAN CORPUSCULAR VOLUME 97.6 FL (78-98); MEAN PLATELET VOLUME 7.3 FL (7.4-10.4); PLATELET COUNT 282 X10'3 (140-440); RED BLOOD COUNT 2.04 X10'6 (4.20-5.60); RED CELL DISTRIBUTION WIDTH 21.3 % (11.5-14.5); WHITE BLOOD COUNT 7.8 X10'3 (4.5-11.0)
[2019-01-22 12:13] LABS: HEMATOCRIT 19.9 % (35.0-45.0); HEMOGLOBIN 6.5 g/dl (12.0-16.0)
[2019-01-22] MEDS: dextrose ORAL solution 15 GM/59 ML bottle PO PRN (17:28)
--- NOTE | 2019-01-22 17:41 | NUR ---
Called Wendy Lee to notify of BP 184/58.
[2019-01-22] MEDS ORDERED: cloNIDine 0.1 mg tablet PO ONE (17:45)
[2019-01-22] MEDS: atorvastatin 20mg tablet PO SCH (21:12)
--- NOTE | 2019-01-22 22:34 | NUR ---
Called Nichole Ramirez about BP 199/56. She said, "I will put something in."
[2019-01-22] MEDS ORDERED: hydrALAZINE 20mg/ml inj. IV PRN (22:40)
--- NOTE | 2019-01-22 22:53 | NUR ---
Per October Paris put in metroprolol and Chanovasc in medrec if patient is still taking it at home. I asked the patient if she was taking those meds at home and she confirmed it. Addendum: 01/22/19 at 2303 by Carl Rouse RN October said they (the intensivists) will review these meds tomorrow.
[2019-01-22] MEDS ORDERED: METO1TAB25 PO (23:01)
[2019-01-22] MEDS ORDERED: AMLO2.5T2 PO (23:01)
[2019-01-23] VITALS (17 sets, daily range): BP systolic 120–195; BP diastolic 44–70
[2019-01-23] MEDS ORDERED: AMLO2.5T2 PO (01:21)
[2019-01-23] MEDS ORDERED: METO1TAB25 PO (01:21)
[2019-01-23] MEDS: ipratropium 0.5 MG/2.5ML nebule IH SCH ×4 (02:51→20:11)
--- NOTE | 2019-01-23 06:27 | NUR ---
Problems reprioritized. Patient report given, questions answered & plan of care reviewed with ALEXANDER Becerra.
[2019-01-23 06:28] LABS: BASOPHILS # (AUTO) 0.1 X10'3 (0-0.2); BASOPHILS % (AUTO) 1.4 % (0-1); EOSINOPHILS # (AUTO) 0.2 X10'3 (0-0.9); EOSINOPHILS % (AUTO) 2.6 % (0-6); HEMATOCRIT 24.5 % (35.0-45.0); HEMOGLOBIN 8.1 g/dl (12.0-16.0); LYMPHOCYTES # (AUTO) 1.4 X10'3 (1.1-4.8); LYMPHOCYTES % (AUTO) 17.4 % (21-51); MEAN CORPUSCULAR HEMOGLOBIN 31.1 PG (27.0-31.0); MEAN CORPUSCULAR HGB CONC 33.2 g/dL (33.0-36.5); MEAN CORPUSCULAR VOLUME 93.8 FL (78-98); MEAN PLATELET VOLUME 7.6 FL (7.4-10.4); MONOCYTES # (AUTO) 0.7 X10'3 (0-0.9); MONOCYTES % (AUTO) 7.9 % (2-12); NEUTROPHILS # (AUTO) 5.9 X10'3 (1.8-7.7); NEUTROPHILS % (AUTO) 70.7 % (42-75); PLATELET COUNT 284 X10'3 (140-440); RED BLOOD COUNT 2.62 X10'6 (4.20-5.60); RED CELL DISTRIBUTION WIDTH 22.1 % (11.5-14.5); WHITE BLOOD COUNT 8.3 X10'3 (4.5-11.0)
--- NOTE | 2019-01-23 06:35 | NUR ---
Patient in room PCU 3012. I have received report from ALEXANDER Henry and had the opportunity to ask questions and assume patient care.
[2019-01-23 06:58] LABS: ALANINE AMINOTRANSFERASE 24 U/L (12-78); ALBUMIN/GLOBULIN RATIO 0.8 (1.1-1.5); ALKALINE PHOSPHATASE 85 IU/L (46-116); ANION GAP 7 (8-16); ASPARTATE AMINO TRANSFERASE 24 U/L (10-37); BILIRUBIN,TOTAL 0.4 MG/DL (0.1-1.0); BLOOD UREA NITROGEN 45 MG/DL (7-18); BUN/CREATININE RATIO 28.7 (6.6-38.0); CALCIUM 8.7 MG/DL (8.5-10.1); CHLORIDE 109 MMOL/L (99-107); CREATININE 1.57 MG/DL (0.40-0.90); GLUCOSE 188 MG/DL (70-104); MAGNESIUM 1.5 MG/DL (1.5-2.4); POTASSIUM 4.9 MMOL/L (3.5-5.1); SODIUM 141 MMOL/L (135-145); TOTAL CARBON DIOXIDE 24.6 MMOL/L (24-32); TOTAL PROTEIN 4.6 G/DL (6.4-8.2); eGFR 33 ML/MIN
[2019-01-23 07:06] LABS: PHOSPHORUS 3.1 MG/DL (2.3-4.5)
[2019-01-23 07:36] LABS: ANISOCYTOSIS 3+; PLATELET ESTIMATE NORMAL
[2019-01-23] MEDS: docusate sod 100mg capsule PO SCH (07:36)
[2019-01-23] MEDS: cloNIDine 0.1 mg tablet PO SCH ×2 (07:36→20:12)
[2019-01-23] MEDS: folic acid 1mg tablet PO SCH (07:36)
[2019-01-23] MEDS: lactobacillus rhamnosus 10,000 MMU CELLS/CAPSULE PO SCH ×2 (07:36→20:12)
[2019-01-23 07:37] LABS: MICROCYTOSIS 1+
[2019-01-23] MEDS: pantoprazole 40mg Tablet.DR PO SCH (07:37)
[2019-01-23] MEDS: amLODIPine 2.5mg tablet PO SCH (07:37)
[2019-01-23] MEDS: levoTHYROXINE 112mcg tablet PO SCH (07:37)
[2019-01-23] MEDS: micafungin inj 100 MG in normal saline 100ml IV soln 100 ML IV SCH (07:38)
[2019-01-23] MEDS: HYDROcodone/acetaminophen 10/325mg tab PO PRN ×2 (07:43→19:24)
[2019-01-23] MEDS: K, MAG and/or Phos replacement - Verify level? MC SCH (08:00)
[2019-01-23] MEDS ORDERED: calcium chloride inj. 2,000 MG in normal saline 250ml IV soln 250 ML IV ONE (08:45)
[2019-01-23] MEDS ORDERED: citrate dextrose 1000ml IV sol 1,000 ML HE ONE (08:45)
[2019-01-23] MEDS: insulin Lispro (HumaLOG) vial - multi-dose SQ SCH ×3 (09:53→19:19)
--- NOTE | 2019-01-23 13:33 | NUR ---
Paged Dr. Blaze hickman pt family request. PAGER ID: [phone] MESSAGE: Pt Nadia Carter in [id number]. Family at bedside, wishing to speak with you. Thanks! ALEXANDER Becerra [phone] Addendum: 01/23/19 at 1430 by Deisy Liang RN Note entered on incorrect pt.
[2019-01-23] MEDS: predniSONE 20 mg tablet PO SCH (14:48)
--- NOTE | 2019-01-23 17:44 | NUR ---
Paged pharmacy to send Procrit.
--- NOTE | 2019-01-23 17:59 | NUR ---
Educated pt on importance of using call light prior to getting up to BSC. Education on importance of accepting physical therapy also provided to pt. Pablito from PT recommended removing BSC from pt's bedside in an effort to prevent falls when pt is noncompliant in call light use.
--- NOTE | 2019-01-23 18:25 | NUR ---
Received report from ALEXANDER Becerra. Patient is awake and alert on room air, in no apparent distress. Having meal, visitor at bedside. Call light and items of frequent use within reach. Will continue to monitor.
--- NOTE | 2019-01-23 18:41 | NUR ---
Student Medication Administration: For this medication-pass time frame, all medication were reviewed, dispensed, administered and documented per hospital policy by SN Obdulia.
--- NOTE | 2019-01-23 18:41 | NUR ---
Problems reprioritized. Patient report given, questions answered & plan of care reviewed with ALEXANDER Alvarado.
[2019-01-23] MEDS: atorvastatin 20mg tablet PO SCH (20:12)
[2019-01-23] MEDS: epoetin 20,000 units/ml inj SQ SCH (20:13)
[2019-01-24] VITALS (12 sets, daily range): BP systolic 139–197; BP diastolic 42–84
[2019-01-24] MEDS: HYDROcodone/acetaminophen 10/325mg tab PO PRN ×4 (02:15→21:53)
[2019-01-24] MEDS ORDERED: metoprolol tartrate 50mg tablet PO ONE (02:30)
[2019-01-24] MEDS: ipratropium 0.5 MG/2.5ML nebule IH SCH ×4 (02:36→20:09)
[2019-01-24 04:55] LABS: BASOPHILS % (AUTO) 0.2 % (0-1); EOSINOPHILS % (AUTO) 0 % (0-6); HEMATOCRIT 26.7 % (35.0-45.0); HEMOGLOBIN 8.8 g/dl (12.0-16.0); LYMPHOCYTES # (AUTO) 0.7 X10'3 (1.1-4.8); LYMPHOCYTES % (AUTO) 8.3 % (21-51); MEAN CORPUSCULAR HEMOGLOBIN 30.9 PG (27.0-31.0); MEAN CORPUSCULAR HGB CONC 33.1 g/dL (33.0-36.5); MEAN CORPUSCULAR VOLUME 93.5 FL (78-98); MEAN PLATELET VOLUME 7.3 FL (7.4-10.4); MONOCYTES # (AUTO) 0.1 X10'3 (0-0.9); MONOCYTES % (AUTO) 1.3 % (2-12); NEUTROPHILS # (AUTO) 7.4 X10'3 (1.8-7.7); NEUTROPHILS % (AUTO) 90.2 % (42-75); PLATELET COUNT 256 X10'3 (140-440); RED BLOOD COUNT 2.85 X10'6 (4.20-5.60); RED CELL DISTRIBUTION WIDTH 21.8 % (11.5-14.5); WHITE BLOOD COUNT 8.2 X10'3 (4.5-11.0)
[2019-01-24 05:11] LABS: ALANINE AMINOTRANSFERASE 53 U/L (12-78); ALBUMIN 2.6 G/DL (3.4-5.0); ALBUMIN/GLOBULIN RATIO 0.9 (1.1-1.5); ALKALINE PHOSPHATASE 131 IU/L (46-116); ANION GAP 7 (8-16); ASPARTATE AMINO TRANSFERASE 63 U/L (10-37); BILIRUBIN,TOTAL 0.4 MG/DL (0.1-1.0); BLOOD UREA NITROGEN 43 MG/DL (7-18); BUN/CREATININE RATIO 26.4 (6.6-38.0); CALCIUM 9.1 MG/DL (8.5-10.1); CHLORIDE 106 MMOL/L (99-107); CREATININE 1.63 MG/DL (0.40-0.90); GLUCOSE 141 MG/DL (70-104); LACTATE DEHYDROGENASE 281 U/L (81-234); MAGNESIUM 1.4 MG/DL (1.5-2.4); POTASSIUM 4.4 MMOL/L (3.5-5.1); SODIUM 139 MMOL/L (135-145); TOTAL CARBON DIOXIDE 26.4 MMOL/L (24-32); TOTAL PROTEIN 5.5 G/DL (6.4-8.2); eGFR 31 ML/MIN
[2019-01-24 05:47] LABS: ANISOCYTOSIS 3+; PLATELET ESTIMATE NORMAL
[2019-01-24 05:49] LABS: POLYCHROMASIA FEW
--- NOTE | 2019-01-24 06:29 | NUR ---
Problems reprioritized. Patient report given, questions answered & plan of care reviewed with ALEXANDER Wilburn.
[2019-01-24] MEDS: K, MAG and/or Phos replacement - Verify level? MC SCH (08:00)
[2019-01-24] MEDS: predniSONE 20 mg tablet PO SCH (08:29)
[2019-01-24] MEDS: levoTHYROXINE 112mcg tablet PO SCH (08:29)
[2019-01-24] MEDS: amLODIPine 2.5mg tablet PO SCH (08:29)
[2019-01-24] MEDS: docusate sod 100mg capsule PO SCH (08:29)
[2019-01-24] MEDS: lactobacillus rhamnosus 10,000 MMU CELLS/CAPSULE PO SCH ×2 (08:29→20:43)
[2019-01-24] MEDS: cloNIDine 0.1 mg tablet PO SCH ×2 (08:29→20:42)
[2019-01-24] MEDS: pantoprazole 40mg Tablet.DR PO SCH (08:30)
[2019-01-24] MEDS: folic acid 1mg tablet PO SCH (08:30)
[2019-01-24] MEDS ORDERED: calcium chloride inj. 2,000 MG in normal saline 250ml IV soln 250 ML IV ONE (08:40)
[2019-01-24] MEDS ORDERED: citrate dextrose 1000ml IV sol 1,000 ML HE ONE (08:40)
[2019-01-24] MEDS: insulin Lispro (HumaLOG) vial - multi-dose SQ SCH ×3 (08:44→18:37)
--- NOTE | 2019-01-24 10:40 | NUR ---
reassessment: Pt PO 50-75% avg carb controlled meals w/ ensure high protein meeting needs. LBM 01/23 on colace. No nutrition concerns at this time. Rec: 1. continue carb controlled diet 2. ensure high protein TIDWM 3. wt per rx Addendum: 01/24/19 at [address] Amended: Links added.
[2019-01-24] MEDS: fentaNYL 25MCG/hour patch.TD72 TD SCH (17:24)
--- NOTE | 2019-01-24 18:14 | NUR ---
Pt was moved from room 3010. Fingerstick was missed due to change in location.
--- NOTE | 2019-01-24 18:41 | NUR ---
Patient in room PCU 3012. I have received report from Cosmo MUNOZ and had the opportunity to ask questions and assume patient care. pt mayra freedman, JAIMIEO, family at bedside, RA
[2019-01-24] MEDS: atorvastatin 20mg tablet PO SCH (20:43)
[2019-01-25] VITALS (16 sets, daily range): BP systolic 138–186; BP diastolic 56–98
[2019-01-25] MEDS: ipratropium 0.5 MG/2.5ML nebule IH SCH ×4 (03:00→21:07)
--- NOTE | 2019-01-25 03:37 | NUR ---
pt bp was 190 systolic, pt c/o of pain, bp dropped to 186 systolic, right now bp is 186/76, asymtomatic, pt sleeping on bed, notified [employer] october, no new order.
[2019-01-25 04:56] LABS: BASOPHILS % (AUTO) 0.2 % (0-1); EOSINOPHILS % (AUTO) 0 % (0-6); HEMATOCRIT 24.6 % (35.0-45.0); HEMOGLOBIN 8.1 g/dl (12.0-16.0); LYMPHOCYTES # (AUTO) 0.7 X10'3 (1.1-4.8); LYMPHOCYTES % (AUTO) 9.6 % (21-51); MEAN CORPUSCULAR HEMOGLOBIN 30.7 PG (27.0-31.0); MEAN CORPUSCULAR HGB CONC 32.9 g/dL (33.0-36.5); MEAN CORPUSCULAR VOLUME 93.4 FL (78-98); MEAN PLATELET VOLUME 7.5 FL (7.4-10.4); MONOCYTES # (AUTO) 0.4 X10'3 (0-0.9); MONOCYTES % (AUTO) 4.8 % (2-12); NEUTROPHILS # (AUTO) 6.4 X10'3 (1.8-7.7); NEUTROPHILS % (AUTO) 85.4 % (42-75); PLATELET COUNT 251 X10'3 (140-440); RED BLOOD COUNT 2.63 X10'6 (4.20-5.60); RED CELL DISTRIBUTION WIDTH 21.4 % (11.5-14.5); WHITE BLOOD COUNT 7.5 X10'3 (4.5-11.0)
[2019-01-25 05:09] LABS: ALANINE AMINOTRANSFERASE 110 U/L (12-78); ALBUMIN 2.7 G/DL (3.4-5.0); ALKALINE PHOSPHATASE 156 IU/L (46-116); ANION GAP 7 (8-16); ASPARTATE AMINO TRANSFERASE 129 U/L (10-37); BILIRUBIN,TOTAL 0.3 MG/DL (0.1-1.0); BLOOD UREA NITROGEN 47 MG/DL (7-18); BUN/CREATININE RATIO 32.2 (6.6-38.0); CALCIUM 8.9 MG/DL (8.5-10.1); CHLORIDE 106 MMOL/L (99-107); CREATININE 1.46 MG/DL (0.40-0.90); GLUCOSE 135 MG/DL (70-104); LACTATE DEHYDROGENASE 230 U/L (81-234); MAGNESIUM 1.4 MG/DL (1.5-2.4); PHOSPHORUS 4.5 MG/DL (2.3-4.5); POTASSIUM 4.2 MMOL/L (3.5-5.1); SODIUM 139 MMOL/L (135-145); TOTAL CARBON DIOXIDE 25.9 MMOL/L (24-32); TOTAL PROTEIN 5.3 G/DL (6.4-8.2); eGFR 35 ML/MIN
--- NOTE | 2019-01-25 06:36 | NUR ---
Problems reprioritized. Patient report given, questions answered & plan of care reviewed with Yared MUNOZ.
--- NOTE | 2019-01-25 06:37 | NUR ---
Patient in room PCU 3012. I have received report from Dana MUNOZ and had the opportunity to ask questions and assume patient care. AM VS being obtained, will continue to monitor patient.
[2019-01-25 06:41] LABS: ANISOCYTOSIS 3+; PLATELET ESTIMATE NORMAL
[2019-01-25] MEDS: docusate sod 100mg capsule PO SCH (07:30)
[2019-01-25] MEDS: pantoprazole 40mg Tablet.DR PO SCH (07:30)
[2019-01-25] MEDS: predniSONE 20 mg tablet PO SCH (07:30)
[2019-01-25] MEDS: lactobacillus rhamnosus 10,000 MMU CELLS/CAPSULE PO SCH ×2 (07:30→20:39)
[2019-01-25] MEDS: levoTHYROXINE 112mcg tablet PO SCH (07:31)
[2019-01-25] MEDS: cloNIDine 0.1 mg tablet PO SCH ×2 (07:31→20:38)
[2019-01-25] MEDS: amLODIPine 5mg tablet PO SCH (07:32)
[2019-01-25] MEDS: folic acid 1mg tablet PO SCH (07:32)
[2019-01-25] MEDS ORDERED: citrate dextrose 1000ml IV sol 1,000 ML HE ONE ×2 (08:00→10:00)
[2019-01-25] MEDS: K, MAG and/or Phos replacement - Verify level? MC SCH (08:00)
[2019-01-25] MEDS ORDERED: calcium chloride inj. 2,000 MG in normal saline 250ml IV soln 250 ML IV ONE ×2 (08:00→10:05)
[2019-01-25] MEDS: insulin Lispro (HumaLOG) vial - multi-dose SQ SCH ×3 (08:54→18:23)
[2019-01-25] MEDS: HYDROcodone/acetaminophen 10/325mg tab PO PRN ×2 (08:55→15:56)
[2019-01-25] MEDS: epoetin 20,000 units/ml inj SQ SCH (08:56)
--- NOTE | 2019-01-25 18:29 | NUR ---
Problems reprioritized. Patient report given, questions answered & plan of care reviewed with Dana MUNOZ.
--- NOTE | 2019-01-25 18:55 | NUR ---
Patient in room PCU 3012. I have received report from Yared MUNOZ and had the opportunity to ask questions and assume patient care.
[2019-01-25] MEDS: atorvastatin 20mg tablet PO SCH (20:39)
[2019-01-26] MEDS: ipratropium 0.5 MG/2.5ML nebule IH SCH ×4 (02:14→19:57)
[2019-01-26 03:00] VITALS: BP 170/92
[2019-01-26 04:47] LABS: BASOPHILS % (AUTO) 0.5 % (0-1); EOSINOPHILS % (AUTO) 0.2 % (0-6); HEMOGLOBIN 7.9 g/dl (12.0-16.0); LYMPHOCYTES # (AUTO) 1.1 X10'3 (1.1-4.8); LYMPHOCYTES % (AUTO) 11.7 % (21-51); MEAN CORPUSCULAR HEMOGLOBIN 30.8 PG (27.0-31.0); MEAN CORPUSCULAR HGB CONC 32.8 g/dL (33.0-36.5); MEAN PLATELET VOLUME 7.7 FL (7.4-10.4); MONOCYTES # (AUTO) 0.5 X10'3 (0-0.9); MONOCYTES % (AUTO) 5.4 % (2-12); NEUTROPHILS # (AUTO) 7.6 X10'3 (1.8-7.7); NEUTROPHILS % (AUTO) 82.2 % (42-75); PLATELET COUNT 250 X10'3 (140-440); RED BLOOD COUNT 2.55 X10'6 (4.20-5.60); RED CELL DISTRIBUTION WIDTH 21.2 % (11.5-14.5); WHITE BLOOD COUNT 9.3 X10'3 (4.5-11.0)
[2019-01-26 05:12] LABS: ALANINE AMINOTRANSFERASE 80 U/L (12-78); ALBUMIN 2.6 G/DL (3.4-5.0); ALKALINE PHOSPHATASE 100 IU/L (46-116); ANION GAP 9 (8-16); ASPARTATE AMINO TRANSFERASE 72 U/L (10-37); BILIRUBIN,TOTAL 0.2 MG/DL (0.1-1.0); BLOOD UREA NITROGEN 54 MG/DL (7-18); BUN/CREATININE RATIO 37.5 (6.6-38.0); CALCIUM 9.1 MG/DL (8.5-10.1); CHLORIDE 107 MMOL/L (99-107); CREATININE 1.44 MG/DL (0.40-0.90); GLUCOSE 69 MG/DL (70-104); LACTATE DEHYDROGENASE 209 U/L (81-234); MAGNESIUM 1.5 MG/DL (1.5-2.4); PHOSPHORUS 4.4 MG/DL (2.3-4.5); POTASSIUM 3.9 MMOL/L (3.5-5.1); SODIUM 141 MMOL/L (135-145); TOTAL CARBON DIOXIDE 25.3 MMOL/L (24-32); TOTAL PROTEIN 5.2 G/DL (6.4-8.2); eGFR 36 ML/MIN
--- NOTE | 2019-01-26 06:21 | NUR ---
Patient in room PCU 3012. I have received report from Dana MUNOZ and had the opportunity to ask questions and assume patient care.
--- NOTE | 2019-01-26 06:29 | NUR ---
Problems reprioritized. Patient report given, questions answered & plan of care reviewed with Yared MUNOZ.
[2019-01-26 06:31] LABS: ANISOCYTOSIS 3+; PLATELET ESTIMATE NORMAL
[2019-01-26 07:00] VITALS: BP 179/61
[2019-01-26] MEDS: cloNIDine 0.1 mg tablet PO SCH ×2 (07:20→20:38)
[2019-01-26] MEDS: pantoprazole 40mg Tablet.DR PO SCH (07:20)
[2019-01-26] MEDS: folic acid 1mg tablet PO SCH (07:20)
[2019-01-26] MEDS: lactobacillus rhamnosus 10,000 MMU CELLS/CAPSULE PO SCH ×2 (07:20→20:12)
[2019-01-26] MEDS: predniSONE 20 mg tablet PO SCH (07:21)
[2019-01-26] MEDS: amLODIPine 5mg tablet PO SCH (07:21)
[2019-01-26] MEDS: docusate sod 100mg capsule PO SCH (07:21)
[2019-01-26] MEDS: levoTHYROXINE 112mcg tablet PO SCH (07:21)
[2019-01-26] MEDS: K, MAG and/or Phos replacement - Verify level? MC SCH (08:00)
[2019-01-26] MEDS: insulin Lispro (HumaLOG) vial - multi-dose SQ SCH ×3 (08:24→20:47)
[2019-01-26] MEDS: HYDROcodone/acetaminophen 10/325mg tab PO PRN ×3 (10:47→22:22)
[2019-01-26 11:00] VITALS: BP 169/61
[2019-01-26 15:00] VITALS: BP 189/79
--- NOTE | 2019-01-26 18:33 | NUR ---
Problems reprioritized. Patient report given, questions answered & plan of care reviewed with Bette MUNOZ.
[2019-01-26 19:00] VITALS: BP 180/74
[2019-01-26] MEDS: atorvastatin 20mg tablet PO SCH (20:38)
[2019-01-26 22:30] VITALS: BP 171/67
[2019-01-27 02:30] VITALS: BP 151/55
[2019-01-27] MEDS: ipratropium 0.5 MG/2.5ML nebule IH SCH ×2 (03:00→08:57)
[2019-01-27] MEDS: HYDROcodone/acetaminophen 10/325mg tab PO PRN ×2 (03:55→15:20)
[2019-01-27 05:17] LABS: BASOPHILS % (AUTO) 0.1 % (0-1); EOSINOPHILS % (AUTO) 0.1 % (0-6); HEMATOCRIT 23.1 % (35.0-45.0); HEMOGLOBIN 7.5 g/dl (12.0-16.0); LYMPHOCYTES # (AUTO) 1.4 X10'3 (1.1-4.8); LYMPHOCYTES % (AUTO) 11.9 % (21-51); MEAN CORPUSCULAR HEMOGLOBIN 30.6 PG (27.0-31.0); MEAN CORPUSCULAR HGB CONC 32.5 g/dL (33.0-36.5); MEAN CORPUSCULAR VOLUME 93.9 FL (78-98); MEAN PLATELET VOLUME 7.6 FL (7.4-10.4); MONOCYTES # (AUTO) 0.9 X10'3 (0-0.9); MONOCYTES % (AUTO) 7.6 % (2-12); NEUTROPHILS # (AUTO) 9.6 X10'3 (1.8-7.7); NEUTROPHILS % (AUTO) 80.3 % (42-75); PLATELET COUNT 229 X10'3 (140-440); RED BLOOD COUNT 2.46 X10'6 (4.20-5.60); RED CELL DISTRIBUTION WIDTH 20.9 % (11.5-14.5); WHITE BLOOD COUNT 11.9 X10'3 (4.5-11.0)
[2019-01-27 05:35] LABS: ALANINE AMINOTRANSFERASE 57 U/L (12-78); ALBUMIN 2.4 G/DL (3.4-5.0); ALBUMIN/GLOBULIN RATIO 0.9 (1.1-1.5); ALKALINE PHOSPHATASE 94 IU/L (46-116); ANION GAP 8 (8-16); ASPARTATE AMINO TRANSFERASE 22 U/L (10-37); BILIRUBIN,TOTAL 0.3 MG/DL (0.1-1.0); BLOOD UREA NITROGEN 60 MG/DL (7-18); BUN/CREATININE RATIO 34.7 (6.6-38.0); CALCIUM 8.2 MG/DL (8.5-10.1); CHLORIDE 105 MMOL/L (99-107); CREATININE 1.73 MG/DL (0.40-0.90); LACTATE DEHYDROGENASE 203 U/L (81-234); MAGNESIUM 1.4 MG/DL (1.5-2.4); PHOSPHORUS 3.9 MG/DL (2.3-4.5); POTASSIUM 3.8 MMOL/L (3.5-5.1); SODIUM 139 MMOL/L (135-145); TOTAL CARBON DIOXIDE 25.7 MMOL/L (24-32); TOTAL PROTEIN 5.1 G/DL (6.4-8.2); eGFR 29 ML/MIN
[2019-01-27 06:00] VITALS: BP 123/46
[2019-01-27 06:15] LABS: GLUCOSE 50 MG/DL (70-104)
[2019-01-27] MEDS: dextrose ORAL solution 15 GM/59 ML bottle PO PRN (06:20)
--- NOTE | 2019-01-27 06:25 | NUR ---
Patient in room PCU 3012. I have received report from Bette MUNOZ and had the opportunity to ask questions and assume patient care.
[2019-01-27] MEDS: cloNIDine 0.1 mg tablet PO SCH (07:22)
[2019-01-27] MEDS: lactobacillus rhamnosus 10,000 MMU CELLS/CAPSULE PO SCH (07:22)
[2019-01-27] MEDS: amLODIPine 5mg tablet PO SCH (07:22)
[2019-01-27] MEDS: pantoprazole 40mg Tablet.DR PO SCH (07:22)
[2019-01-27] MEDS: docusate sod 100mg capsule PO SCH (07:22)
[2019-01-27] MEDS: folic acid 1mg tablet PO SCH (07:22)
[2019-01-27] MEDS: levoTHYROXINE 112mcg tablet PO SCH (07:22)
[2019-01-27] MEDS: predniSONE 20 mg tablet PO SCH (07:23)
[2019-01-27] MEDS: K, MAG and/or Phos replacement - Verify level? MC SCH (08:00)
[2019-01-27] MEDS: epoetin 20,000 units/ml inj SQ SCH (09:53)
[2019-01-27 11:00] VITALS: BP 120/51
[2019-01-27] MEDS: insulin Lispro (HumaLOG) vial - multi-dose SQ SCH (13:24)
[2019-01-27] MEDS ORDERED: CLON0.1T20 PO (14:33)
[2019-01-27] MEDS ORDERED: NOR5T PO (14:33)
--- NOTE | 2019-01-27 16:00 | NUR ---
ALL WRITTEN AND VERBAL ORDERS FOR D/C GIVEN TO PT AND FAMILY MEMBERS. MEDS REVIEWED. FAMILY WILL TAKE RX THEMSELVES TO PHARMACY. DR ANAYA CONTACTED TO REVIEW HOME MED LIST. PT WILL SEE MD NEXT WEEK AND REVIEW DM MANAGEMENT. PT STATED SHE HAD ALL BELONGINGS. PHOTOS TAKEN OF WOUND TO R BUTTOCK AND LEFT WRIST. DRSGS FOR BUTTOCK GIVEN. Addendum: 01/27/19 at 1712 by Lila Butler RN Amended: Links added.
== END 2019-01-27 16:20 | disposition home or self-care (01) | DRG 871 ==
LOC: ER 19:13 → CICU 2S 23:27 → CMPBEDREQ 01-15 01:26 → PCU 3S 01-17 17:43
PROVIDERS: ADMIT Internal Medicine Critical Care Medicine; ATTEND Internal Medicine Critical Care Medicine
PROC: 30233N1 Transfusion of Nonautologous Red Blood Cells into Peripheral Vein, Percutaneous Approach (ICD-10-PCS; 2019-01-13)
PROC: 0DBM8ZX Excision of Descending Colon, Via Natural or Artificial Opening Endoscopic, Diagnostic (ICD-10-PCS; 2019-01-15)
PROC: 0DBN8ZX Excision of Sigmoid Colon, Via Natural or Artificial Opening Endoscopic, Diagnostic (ICD-10-PCS; 2019-01-15)
PROC: 0DJ08ZZ Inspection of Upper Intestinal Tract, Via Natural or Artificial Opening Endoscopic (ICD-10-PCS; 2019-01-15)
PROC: 0JH63XZ Insertion of Tunneled Vascular Access Device into Chest Subcutaneous Tissue and Fascia, Percutaneous Approach (ICD-10-PCS; principal; 2019-01-20)
PROC: 02H633Z Insertion of Infusion Device into Right Atrium, Percutaneous Approach (ICD-10-PCS; 2019-01-20)
PROC: B2141ZZ Fluoroscopy of Right Heart using Low Osmolar Contrast (ICD-10-PCS; 2019-01-20)
PROC: B244ZZZ Ultrasonography of Right Heart (ICD-10-PCS; 2019-01-20)
PROC: 30233K1 Transfusion of Nonautologous Frozen Plasma into Peripheral Vein, Percutaneous Approach (ICD-10-PCS; 2019-01-21)
PROC: 6A551Z3 Pheresis of Plasma, Multiple (ICD-10-PCS; 2019-01-21)
PROC: 30233K1 Transfusion of Nonautologous Frozen Plasma into Peripheral Vein, Percutaneous Approach (ICD-10-PCS; 2019-01-22)
PROC: 30233N1 Transfusion of Nonautologous Red Blood Cells into Peripheral Vein, Percutaneous Approach (ICD-10-PCS; 2019-01-22)
PROC: 30233K1 Transfusion of Nonautologous Frozen Plasma into Peripheral Vein, Percutaneous Approach (ICD-10-PCS; 2019-01-23)
PROC: 30233K1 Transfusion of Nonautologous Frozen Plasma into Peripheral Vein, Percutaneous Approach (ICD-10-PCS; 2019-01-24)
PROC: 30233K1 Transfusion of Nonautologous Frozen Plasma into Peripheral Vein, Percutaneous Approach (ICD-10-PCS; 2019-01-25)
DX: A41.9 Sepsis, unspecified organism (principal); M31.1 Thrombotic microangiopathy; K57.31 Diverticulosis of large intestine without perforation or abscess with bleeding; I13.0 Hypertensive heart and chronic kidney disease with heart failure and stage 1 through stage 4 chronic kidney disease, or unspecified chronic kidney disease; N17.9 Acute kidney failure, unspecified; R57.9 Shock, unspecified; N30.80 Other cystitis without hematuria; E11.21 Type 2 diabetes mellitus with diabetic nephropathy; E11.22 Type 2 diabetes mellitus with diabetic chronic kidney disease; I50.9 Heart failure, unspecified; K63.89 Other specified diseases of intestine; D50.9 Iron deficiency anemia, unspecified; E86.0 Dehydration; R19.5 Other fecal abnormalities; L89.319 Pressure ulcer of right buttock, unspecified stage; R68.84 Jaw pain; M06.9 Rheumatoid arthritis, unspecified; R74.0 Nonspecific elevation of levels of transaminase and lactic acid dehydrogenase [LDH]; J44.9 Chronic obstructive pulmonary disease, unspecified; M19.019 Primary osteoarthritis, unspecified shoulder; N18.3 Chronic kidney disease, stage 3 (moderate); N20.0 Calculus of kidney; F17.210 Nicotine dependence, cigarettes, uncomplicated; Z88.2 Allergy status to sulfonamides; Z79.01 Long term (current) use of anticoagulants; Z79.4 Long term (current) use of insulin; Z79.82 Long term (current) use of aspirin; Z79.890 Hormone replacement therapy; Z79.899 Other long term (current) drug therapy; Z86.73 Personal history of transient ischemic attack (TIA), and cerebral infarction without residual deficits; Z87.440 Personal history of urinary (tract) infections
CPT/HCPCS: 36415; 36558; 36600; 45380; 71045; 71250; 74176; 76775; 76937; 77001; 80053; 81001; 82272; 82570; 82728; 82803; 82948; 83010; 83036; 83540; 83550; 83605; 83615; 83735; 83880; 84100; 84145; 84156; 84300; 84443; 84484; 85018; 85025; 85027; 85045; 85379; 85384; 85610; 85730; 86885; 86900; 86901; 86920; 87040; 87070; 87088; 87207; 88305; 90935; 93005; 93308; 94640; 94760; 96361; 96365; 96375; 97116; 97161; 97530; 99152; 99153; 99291; A9270; C1750; C1894; C9113; G0378; J0360; J0696; J0885; J1644; J1815; J2001; J2248; J2250; J2543; J3010; J7030; J7512; P9016; P9059

== ENCOUNTER 2019-03-10 13:17 | Emergency (ER) | payer MEDICARE, MEDICAID, OTHER ==
[~2019-03-10] VITALS: Ht 152.4 cm; Wt 37.2 kg
[~2019-03-10 13:17] MED LIST changes: +ALBU8.5H8 IH; -AMLO2.5T2 PO; +ASPI-1071 PO; -ASPI-1264 PO; -ATOR20TA PO; +ATOR80TA PO; -CEFT1VIA14 IV; -CLON-529 PO; +CLON0.1T20 PO; +ESOM40CA PO; +ETAN50CA SQ; -FENT1PAT10 TP; +FENT1PAT7 TD; -FOLI0.4T2 PO; +FOLI1TAB16 PO; +HUM7525 SQ; +HYDR-4353 PO; -INSU100C10 SQ; +LEVO75TA PO; -LISI40TA4 PO; +NOR5T PO; -OMEP40CA37 PO; +RIVA20TA PO; -SYN0.088T PO; +TIOT18CA3 IH; +TRAM50TA2 PO
[2019-03-10 13:27] VITALS: BP 126/60
== END 2019-03-10 15:01 | disposition left against medical advice (07) ==
LOC: ER 13:19
DX: Z49.01 Encounter for fitting and adjustment of extracorporeal dialysis catheter (principal); I13.0 Hypertensive heart and chronic kidney disease with heart failure and stage 1 through stage 4 chronic kidney disease, or unspecified chronic kidney disease; N18.9 Chronic kidney disease, unspecified; J44.9 Chronic obstructive pulmonary disease, unspecified; E66.9 Obesity, unspecified; Z88.2 Allergy status to sulfonamides; Z79.899 Other long term (current) drug therapy; Z79.82 Long term (current) use of aspirin; Z86.73 Personal history of transient ischemic attack (TIA), and cerebral infarction without residual deficits
CPT/HCPCS: 99284